=== PATIENT | female | born 1960 | race Caucasian/White ===

== ENCOUNTER 2016-05-25 15:23 | Inpatient (IN) | payer BC ==
[~2016-05-25] VITALS: Ht 165.1 cm; Wt 122.6 kg
--- NOTE | 2016-05-25 16:05 | RAD ---
Indication: Chest pain. Time of exam 1551 hours. No prior studies are available for comparison. There is right convexity thoracic scoliotic curvature. The lungs are clear. No infiltrate or failure is detected. No effusion or pneumothorax is seen. Impression: No acute features detected.
[2016-05-25 16:07] LABS: BASO % 1 % (0-3); EOS % 1 % (0-3); HEMATOCRIT 38.4 % (36.0-47.0); HEMOGLOBIN 12.8 g/dL (12.0-15.5); LYMPH # 1.8 x10^3/uL (1.0-4.8); LYMPH % 25 % (24-48); MEAN CORPUSCULAR HEMOGLOBIN 29 pg (25-35); MEAN CORPUSCULAR HGB CONC 33 g/dL (31-37); MEAN CORPUSCULAR VOLUME 87 fL (79-100); MONO % 7 % (0-9); NEUT % 67 % (31-73); PLATELET COUNT 237 x10^3/uL (140-400); RED BLOOD COUNT 4.41 x10^6/uL (3.50-5.40); WHITE BLOOD COUNT 7.2 x10^3/uL (4.0-11.0)
[2016-05-25 16:15] LABS: CALCIUM 8.7 mg/dL (8.5-10.1); CREATININE 0.8 mg/dL (0.6-1.0); GFR 74.5; POTASSIUM 3.9 mmol/L (3.5-5.1)
--- NOTE | 2016-05-25 16:18 | EKG ---
[facility] [address] [place] [address] Test Date: 2016-05-25 Test Time: 15:34:02 Pat Name: VISHAL MAYO Department: Room: Gender: F Ciaio Lumite Injector: : 1960 Requested By: MEJIA HINOJOSA Order Number: [id number] Reading MD: Stef Mcfarland Measurements Intervals [place] Rate: 60 P: 23 KS: 212 QRS: -6 QRSD: 88 T: 23 QT: 420 QTc: 424 Interpretive Statements SINUS RHYTHM Electronically Signed On 05-26-2016 13:17:05 [employer] P[employer] by Stef Mcfarland
[2016-05-25] MEDS ORDERED: hydrALAZINE 20 MG/ML VIAL. IVP ONE (16:30)
[2016-05-25] MEDS ORDERED: IOHEXOL 300 MG/ML 75 ML VIAL IV ONE (16:45)
--- NOTE | 2016-05-25 17:24 | RAD ---
PROCEDURE CT head without contrast. HISTORY Headache today TECHNIQUE Helical CT imaging of the brain is performed without IV contrast. PQRS: One or more the following individualized dose reduction techniques were utilized for the study: 1. Automated exposure control. 2. Adjustment of the mA and/or kV according to patient size. 3. Use of iterative reconstruction technique. COMPARISON None. FINDINGS There is no midline shift or mass effect. No extra-axial fluid collection or intraparenchymal hemorrhage. Russ-white matter differentiation is preserved. Ventricles and sulci are normal for patient age. The visualized paranasal sinuses and mastoid air cells are clear. The globes and orbits appear intact. No acute calvarial abnormality. IMPRESSION No acute intracranial abnormality. Electronically signed by: Becky Rodriguez MD (May 25, 2016 17:22:58)
--- NOTE | 2016-05-25 17:40 | PHYS DOC ---
Past Medical History Past Medical History: No Pertinent History Past Surgical History: Cholecystectomy, , Hysterectomy Alcohol Use: None Drug Use: None Adult General Chief Complaint Chief Complaint: NEURO SYMPTOMS/DEFICITS [facility] HPI This is a 55-year-old female is coming in with significant chest pain as well as some abnormal sensory disturbance in which she states she has an abnormal smelling sensation for the last several hours. She additionally notes that symptoms were present upon awakening earlier today around 9 AM. She does relate that she's been having ongoing chest pain on and off for the last few months. She does not state she has any history of health problems. She has been told that she has history of elevated blood pressure but is not currently on any blood pressure medications. She currently rates her chest pain at approximately a 6 out of 10. She also states she has some mild tingling in her bilateral upper extremities. Review of Systems Review of Systems Constitutional: Denies fever or chills [] Eyes: Denies change in visual acuity, redness, or eye pain [] HENT: Denies nasal congestion or sore throat [] Respiratory: Denies cough or shortness of breath [] Cardiovascular: No additional information not addressed in HPI [] GI: Denies abdominal pain, nausea, vomiting, bloody stools or diarrhea [] : Denies dysuria or hematuria [] Musculoskeletal: Denies back pain or joint pain [] Integument: Denies rash or skin lesions [] Neurologic: Denies headache, focal weakness or sensory changes [] Endocrine: Denies polyuria or polydipsia [] Current Medications Current Medications Current Medications Medications (Trade) Dose Ordered Sig/Black Start Time Stop Time Status Last Admin Dose Admin Acetaminophen (Tylenol) 650 mg PRN Q4HRS PRN 05/25/16 18:45 05/26/16 18:44 Hydralazine HCl (Apresoline) 10 mg CONT PRN PRN 05/25/16 19:30 UNV Iohexol (Omnipaque 300 Mg/ml) 75 ml 1X ONCE 05/25/16 16:45 05/25/16 16:49 DC 05/25/16 17:10 75 ML Ondansetron HCl (Zofran) 4 mg PRN Q8HRS PRN 05/25/16 18:45 05/26/16 18:44 Allergies Allergies Allergies Coded Allergies Type Severity Reaction Last Updated Verified No Known Drug Allergies 05/25/16 No Physical Exam Physical Exam Constitutional: Well developed, well nourished, no acute distress, non-toxic appearance. [] HENT: Normocephalic, atraumatic, bilateral external ears normal, oropharynx moist, no oral exudates, nose normal. [] Eyes: PERRLA, EOMI, conjunctiva normal, no discharge. [] Neck: Normal range of motion, no tenderness, supple, no stridor. [] Cardiovascular:Heart rate regular rhythm, no murmur [] Lungs & Thorax: Bilateral breath sounds clear to auscultation [] Abdomen: Bowel sounds normal, soft, no tenderness, no masses, no pulsatile masses. [] Skin: Warm, dry, no erythema, no rash. [] Back: No tenderness, no CVA tenderness. [] Extremities: No tenderness, no cyanosis, no clubbing, ROM intact, no edema. [] Neurologic: Alert and oriented X 3, normal motor function, normal sensory function, no focal deficits noted. [] Psychologic: Affect normal, judgement normal, mood normal. [] Current Patient Data Vital Signs Vital Signs Date Time Temp Pulse Resp B/P Pulse Ox O2 Delivery O2 Flow Rate FiO2 05/25/16 19:00 72 16 206/93 98 Room Air 05/25/16 15:42 98.9 98.9 Lab Values Laboratory Tests Test 05/25/16 16:00 White Blood Count 7.2x10^3/uL (4.0-11.0) Red Blood Count 4.41x10^6/uL (3.50-5.40) Hemoglobin 12.8g/dL (12.0-15.5) Hematocrit 38.4% (36.0-47.0) Mean Corpuscular Volume 87fL (79-100) Mean Corpuscular Hemoglobin 29pg (25-35) Mean Corpuscular Hemoglobin Concent 33g/dL (31-37) Red Cell Distribution Width 13.0% (11.5-14.5) Platelet Count 237x10^3/uL (140-400) Neutrophils (%) (Auto) 67% (31-73) Lymphocytes (%) (Auto) 25% (24-48) Monocytes (%) (Auto) 7% (0-9) Eosinophils (%) (Auto) 1% (0-3) Basophils (%) (Auto) 1% (0-3) Neutrophils # (Auto) 4.8x10^3uL (1.8-7.7) Lymphocytes # (Auto) 1.8x10^3/uL (1.0-4.8) Monocytes # (Auto) 0.5x10^3/uL (0.0-1.1) Eosinophils # (Auto) 0.1x10^3/uL (0.0-0.7) Basophils # (Auto) 0.0x10^3/uL (0.0-0.2) Sodium Level 140mmol/L (136-145) Potassium Level 3.9mmol/L (3.5-5.1) Chloride Level 104mmol/L (98-107) Carbon Dioxide Level 28mmol/L (21-32) Anion Gap 8 (6-14) Blood Urea Nitrogen 13mg/dL (7-20) Creatinine 0.8mg/dL (0.6-1.0) Estimated GFR (Cockcroft-Gault) 74.5 Glucose Level 154mg/dL (70-99) H Calcium Level 8.7mg/dL (8.5-10.1) Troponin I Quantitative < 0.017ng/mL (0.000-0.055) Laboratory Tests 05/25/16 16:00 Laboratory Tests 05/25/16 16:00 EKG EKG EKG is interpreted by mo shows sinus rhythm with rate of 60 bpm. There is a leftward axis. There are no acute ischemic changes on this EKG. Radiology/Procedures Radiology/Procedures Portable one view of the chest as interpreted by mo and the radiologist does not reveal an acute cardiopulmonary process. CTA of the chest demonstrated the following: Axial imaging through the chest was performed after the administration of intravenous contrast and utilizing the CT angiography protocol. Multiplanar, 3-D and MIP reformations were also performed. Evaluation of the pulmonary arterial system is without evidence of thromboembolism. No filling defects are identified. The thoracic aorta is unremarkable. No dissection is identified. No axillary, hilar or mediastinal lymphadenopathy is seen. There are calcified lymph nodes in the left hilum consistent with prior granulomatous exposure. No pericardial or pleural fluid is identified. Parenchymal evaluation demonstrate a calcified granuloma in the left lower lobe. No infiltrates are identified. There is a tiny subpleural nodule in the right upper lobe laterally, image 39. The upper abdomen is unremarkable. The bony structures are nonacute. CT of the head without contrast demonstrated the following: There is no midline shift or mass effect. No extra-axial fluid collection or intraparenchymal hemorrhage. Russ-white matter differentiation is preserved. Ventricles and sulci are normal for patient age. The visualized paranasal sinuses and mastoid air cells are clear. The globes and orbits appear intact. No acute calvarial abnormality. Course & Med Decision Making Course & Med Decision Making Pertinent Labs and Imaging studies reviewed. (See chart for details) This 55-year-old female who is having ongoing chest pain and an extremely elevated blood pressure of 230/130 received an IV dose of hydralazine that has improved her pressure to approximately 180/80. Her NIH exam is 0. Due to the fact that she's having neuro type symptoms and ongoing chest pain I will be obtaining a CT of her chest rule out any acute aortic or other abnormality. Her EKG and bloodwork including a set of cardiac enzymes did not reveal any acute abnormality. I also obtained a CT of her head and chest. CT of her head and CT of her chest were negative for any acute abnormality. Her bloodwork is also nonrevealing and the patient was given an IV dose of hydralazine which did improve her symptoms and her blood pressure but her blood pressure did start to increase again and so a PRN hydralazine was ordered. I discussed the case with Dr. Rajput who agreed to admit the patient with cardiology consult for her ongoing high blood pressure issues and chest pain. Upon my final assessment patient is denying any significant symptoms and is not deemed a TPA candidate. Dragon Disclaimer Dragon Disclaimer This electronic medical record was generated, in whole or in part, using a voice recognition dictation system. Departure Departure Impression: Primary Impression: Hypertensive urgency Additional Impressions: Chest pain Pulmonary nodule Disposition: ADMITTED INPATIENT Admitting Physician: Jeromy Rajput Condition: STABLE Referrals: NO PCP (PCP) Problem Qualifiers MEJIA HINOJOSA DO May 25, 2016 17:40
--- NOTE | 2016-05-25 18:03 | RAD ---
CT angio chest. Indication: HEADACHE, CHEST PRESSURE, TIGHTNESS TODAY. NO PREVIOUS.
IV OMNI 300 75 MLSReason: headache / Spl. Instructions: / History: TECHNIQUE Multiple contiguous axial images were obtained through the chest after intravenous administration of iodinated contrast. Sagittal and coronal MIP reformations were created. FINDINGS There is a somewhat lobulated 1.4 centimeter nodule in the medial basal segment of the right lower lobe. There is a 4.3 millimeter noncalcified pleural-based nodule in the lateral right lower lobe. There is also a 10 millimeter noncalcified nodule adjacent to the right hilum in the right upper lobe abutting the minor fissure. The left lung is clear. There is no filling defect within the pulmonary arteries to suggest presence of a pulmonary embolism. The heart size is normal. There is no pericardial effusion. The thoracic aorta is normal in caliber with no evidence for dissection. Mildly prominent subcentimeter mediastinal lymph nodes are seen. There is a enlarged 1.7 centimeter right hilar lymph node. Limited subdiaphragmatic evaluation is unremarkable. No destructive osseous lesions are identified. IMPRESSION Noncalcified dominant lobulated 1.4 centimeter nodule in the right lower lobe with additional nodules in the right lung as outlined above. The etiology of the nodules is not clear. While noncalcified granulomatous lesions are possible, primary pulmonary neoplasm with additional metastatic nodules is possible. Mildly enlarged right hilar lymph node, metastatic etiology not excluded. PQRS STATEMENT One or more of the following individualized dose reduction techniques were utilized for this study: 1.Automated exposure control 2.Adjustment of the mA and/or kV according to patient size 3.Use of iterative reconstruction technique Electronically signed by: Becky Rodriguez MD (May 25, 2016 18:01:23)
[2016-05-25] MEDS ORDERED: ONDANSETRON PF 4 MG/2 ML VIAL. IV PRN (18:45)
[2016-05-25] MEDS ORDERED: hydrALAZINE 20 MG/ML VIAL. IVP PRN (19:30)
[2016-05-25 20:10] VITALS: BP 198/92
[2016-05-25] MEDS: ACETAMINOPHEN 325 MG TABLET. PO PRN (20:29)
[2016-05-25 20:40] VITALS: BP 200/83
[2016-05-25 21:50] VITALS: BP 182/84
[2016-05-25] MEDS: AMLODIPINE BESYLATE 10 MG TABLET PO SCH (21:54)
[2016-05-25] MEDS ORDERED: FUROSEMIDE 40 MG/4 ML VIAL IVP ONE (22:00)
[2016-05-25 23:15] VITALS: BP 175/75
[2016-05-26 03:00] VITALS: BP 176/78
[2016-05-26] MEDS: ACETAMINOPHEN 325 MG TABLET. PO PRN ×3 (03:09→14:30)
[2016-05-26 06:47] LABS: BASO # 0.1 x10^3/uL (0.0-0.2); BASO % 1 % (0-3); EOS % 1 % (0-3); HEMATOCRIT 38.6 % (36.0-47.0); HEMOGLOBIN 12.9 g/dL (12.0-15.5); LYMPH # 1.6 x10^3/uL (1.0-4.8); LYMPH % 22 % (24-48); MEAN CORPUSCULAR HEMOGLOBIN 29 pg (25-35); MEAN CORPUSCULAR HGB CONC 34 g/dL (31-37); MEAN CORPUSCULAR VOLUME 88 fL (79-100); MONO % 6 % (0-9); NEUT % 71 % (31-73); PLATELET COUNT 233 x10^3/uL (140-400); RED BLOOD COUNT 4.41 x10^6/uL (3.50-5.40); RED CELL DISTRIBUTION WIDTH 12.9 % (11.5-14.5); WHITE BLOOD COUNT 7.6 x10^3/uL (4.0-11.0)
[2016-05-26 06:58] LABS: CALCIUM 8.8 mg/dL (8.5-10.1); CREATININE 0.8 mg/dL (0.6-1.0); GFR 74.5; POTASSIUM 4.1 mmol/L (3.5-5.1)
[2016-05-26 07:58] VITALS: BP 150/66
[2016-05-26] MEDS: AMLODIPINE BESYLATE 10 MG TABLET PO SCH (08:24)
--- NOTE | 2016-05-26 09:14 | PDOC2 ---
CHANDNI JOHNSON EGG CANDLER 05/26/16 0914: CARDIAC CONSULT DATE OF CONSULT Date of Consult DATE: 05/26/16 TIME: 09:05 REASON FOR CONSULT Reason for Consult: Chest Pain REFERRING PHYSICIAN Referring Physician: Dr. Paul SOURCE Source: Chart review, Patient HISTORY OF PRESENT ILLNESS HISTORY OF PRESENT ILLNESS This is a 55 yo female, with a history of HTN and HLP, who presented with complaints of chest pain. Patient reports pain has been occurring intermittently over the last 3-4 month. Generally has 1 episode, lasting 1-2 minutes, every 3-4 days. Yesterday, patient had 5-6 episodes so she came in for further evaluation. Pain is located in her central chest. Describes as tightness. Non-radiating. Denies any associated dizziness, diaphoresis, palpitations, SOA, or wheezing. No recent LE edema, orthopnea, or fevers/ illness. Reports slight wheezing over the last couple of months. Patient additionally reports that chest tightness is associated with "disorientation" and that she feels like "I am in another world" for a brief period. No exacerbating or relieving factors. Symptoms resolve without intervention within 1-2 minutes. No prior h/o cardiac disease or cardiac workup. Does not routinely follow with PCP or take any medications. Both mother and father with h/o CAD with father passing away from [place] at age 48. PAST MEDICAL HISTORY Cardiovascular: HTN, Hyperlipidemia Pulmonary: No pertinent hx CENTRAL NERVOUS SYSTEM: Other (no pertinent hx) GI: GERD Heme/Onc: No pertinent hx Hepatobiliary: No pertinent hx Psych: No pertinent hx Musculoskeletal: Osteoarthritis Rheumatologic: No pertinent hx Infectious disease: No pertinent hx ENT: No pertinent hx Renal/: No pertinent hx Endocrine: No pertinent hx Dermatology: No pertinent hx PAST SURGICAL HISTORY Past Surgical History: Cholecystectomy, Hysterectomy FAMILY HISTORY Family History: Coronary Artery Disease (mother/father), Hypertension, Stroke SOCIAL HISTORY Smoke: No ALCOHOL: none Drugs: None Lives: with Family CURRENT MEDICATIONS CURRENT MEDICATIONS Current Medications Medications (Trade) Dose Ordered Sig/Black Route PRN Reason Start Time Stop Time Status Last Admin Dose Admin Hydralazine HCl (Apresoline) 10 mg 1X ONCE IVP 05/25/16 16:30 05/25/16 16:31 DC 05/25/16 16:31 Iohexol (Omnipaque 300 Mg/ml) 75 ml 1X ONCE IV 05/25/16 16:45 05/25/16 16:49 DC 05/25/16 17:10 Ondansetron HCl (Zofran) 4 mg PRN Q8HRS PRN IV NAUSEA/VOMITING 05/25/16 18:45 05/26/16 18:44 05/25/16 22:18 Acetaminophen (Tylenol) 650 mg PRN Q4HRS PRN PO FEVER 05/25/16 18:45 05/26/16 18:44 05/26/16 08:24 Hydralazine HCl (Apresoline) 10 mg PRN Q4HRS PRN IVP HYPERTENSION, SEE COMMENTS 05/25/16 19:30 05/25/16 19:32 Amlodipine Besylate (Norvasc) 10 mg DAILY PO 05/25/16 22:00 05/26/16 08:24 Furosemide (Lasix) 40 mg 1X ONCE IVP 05/25/16 22:00 05/25/16 22:01 DC 05/25/16 21:54 ALLERGIES ALLERGIES: Coded Allergies: No Known Drug Allergies (Unverified , 05/25/16) ROS Review of System 14 point ROS conducted with pertinent positives noted above in HPI. PHYSICAL EXAM General: Alert, Oriented X3, Cooperative, No acute distress HEENT: Atraumatic, PERRLA, Mucous membr. moist/pink Lungs: Normal air movement Heart: Regular rate, Normal S1, Normal S2 Abdomen: Soft, No tenderness Extremities: No cyanosis, No edema, Normal pulses, Other Skin: No breakdown, No significant lesion Neuro: Normal speech, Sensation intact Psych/Mental Status: Mental status NL, Mood NL MUSCULOSKELETAL: Full range of motion without pain VITALS VITALS Vital Signs Date Time Temp Pulse Resp B/P Pulse Ox O2 Delivery O2 Flow Rate FiO2 05/26/16 08:24 64 150/66 05/26/16 07:58 97.6 18 97 Room Air 97.6 LABS Lab: Laboratory Tests Test 05/25/16 16:00 05/26/16 01:13 05/26/16 06:38 White Blood Count 7.2x10^3/uL (4.0-11.0) 7.6x10^3/uL (4.0-11.0) Red Blood Count 4.41x10^6/uL (3.50-5.40) 4.41x10^6/uL (3.50-5.40) Hemoglobin 12.8g/dL (12.0-15.5) 12.9g/dL (12.0-15.5) Hematocrit 38.4% (36.0-47.0) 38.6% (36.0-47.0) Mean Corpuscular Volume 87fL (79-100) 88fL (79-100) Mean Corpuscular Hemoglobin 29pg (25-35) 29pg (25-35) Mean Corpuscular Hemoglobin Concent 33g/dL (31-37) 34g/dL (31-37) Red Cell Distribution Width 13.0% (11.5-14.5) 12.9% (11.5-14.5) Platelet Count 237x10^3/uL (140-400) 233x10^3/uL (140-400) Neutrophils (%) (Auto) 67% (31-73) 71% (31-73) Lymphocytes (%) (Auto) 25% (24-48) 22% (24-48) Monocytes (%) (Auto) 7% (0-9) 6% (0-9) Eosinophils (%) (Auto) 1% (0-3) 1% (0-3) Basophils (%) (Auto) 1% (0-3) 1% (0-3) Neutrophils # (Auto) 4.8x10^3uL (1.8-7.7) 5.3x10^3uL (1.8-7.7) Lymphocytes # (Auto) 1.8x10^3/uL (1.0-4.8) 1.6x10^3/uL (1.0-4.8) Monocytes # (Auto) 0.5x10^3/uL (0.0-1.1) 0.5x10^3/uL (0.0-1.1) Eosinophils # (Auto) 0.1x10^3/uL (0.0-0.7) 0.1x10^3/uL (0.0-0.7) Basophils # (Auto) 0.0x10^3/uL (0.0-0.2) 0.1x10^3/uL (0.0-0.2) Sodium Level 140mmol/L (136-145) 142mmol/L (136-145) Potassium Level 3.9mmol/L (3.5-5.1) 4.1mmol/L (3.5-5.1) Chloride Level 104mmol/L (98-107) 104mmol/L (98-107) Carbon Dioxide Level 28mmol/L (21-32) 29mmol/L (21-32) Anion Gap 8 (6-14) 9 (6-14) Blood Urea Nitrogen 13mg/dL (7-20) 12mg/dL (7-20) Creatinine 0.8mg/dL (0.6-1.0) 0.8mg/dL (0.6-1.0) Estimated GFR (Cockcroft-Gault) 74.5 74.5 Glucose Level 154mg/dL (70-99) 136mg/dL (70-99) Calcium Level 8.7mg/dL (8.5-10.1) 8.8mg/dL (8.5-10.1) Troponin I Quantitative < 0.017ng/mL (0.000-0.055) < 0.017ng/mL (0.000-0.055) < 0.017ng/mL (0.000-0.055) ASSESSMENT/PLAN ASSESSMENT/PLAN 1. Chest pain, atypical 2. Malignant hypertension 3. GERD 4. DM? 5. pulmonary nodule Recommendations troponin series normal- AMI ruled out chest pain atypical, but given strong family history of premature CAD and significant risk factors, will proceed with MPI to r/o ischemia ASA, check lipids, A1C. Statin therapy if indicated Norvasc initiated and BP better controlled, but would recommend AQUILES, especially if A1C elevated. Further workup of right lung nodules per pulmonary Problems: VALENTINE CAMARENA MD 05/26/16 1522: CARDIAC CONSULT ALLERGIES ALLERGIES: Coded Allergies: No Known Drug Allergies (Unverified , 05/25/16) ASSESSMENT/PLAN ASSESSMENT/PLAN Patient seen and examined. Agree with above nurse practitioner note. 55-year-old woman presenting with atypical chest pain symptoms. She has had malignant hypertension upon arrival. Normal cardiac and pulmonary examination. Medications and laboratory studies are reviewed. Nuclear stress test is within normal limits. No further cardio vascular testing necessary. Continue risk factor modification and blood pressure control. We will follow up on an outpatient basis as needed. Problems: CHANDNI JOHNSON APRN May 26, 2016 09:14 VALENTINE CAMARENA MD May 26, 2016 15:22
[2016-05-26 09:42] LABS: CHOLESTEROL/HDL RATIO 4.3
[2016-05-26] MEDS ORDERED: REGADENOSON 0.4 MG/5 ML DISP.SYRIN. IV ONE (11:15)
[2016-05-26] MEDS ORDERED: LISINOPRIL 5 MG TABLET. PO SCH (12:30)
--- NOTE | 2016-05-26 13:15 | RAD ---
APPROVED REPORT Test Type: Pharmacological Stress Nurse/Tech: sharon lee Test Indications: CP, HTN Cardiac History: HTN SEE EHR Medications: SEE EHR Medical History: ASTHMA SEE EHR Resting ECG: SR Resting Heart Rate: 68 bpm Resting Blood Pressure: 163/73mmHg Pretest Chest Pain: No chest pain Nurse/Tech Notes LUNG SOUNDS CLEAR, S1S2 WNL. Consent: The procedure was explained to the patient in lay terms. Informed consent was witnessed. Dima eout was entered into [facility]. History and Stress Test performed by RT Kumar (R) (N) Pharm. Details Pharmacologic stress testing was performed using 0.4mg per 5ml of regadenoson given intravenously ove r 7-10 seconds. Stress Symptoms FACIAL FLUSHING, HEADACHE. POST EXERCISE Max HR: 118 bpm Max Blood Pressure: 179/87mmHg Chest Pain: No. Arrhythmia: No. ST Change: No. INTERPRETATION Stress EKG Conclusion: No evidence of stress induced EKG changes. Imaging Protocol IMAGE PROTOCOL: Stress Tc-99m/rest Tc-99m 2 days Rest: Stress: Viability: Radiopharm.Tc99m Sestamibi [id number] Duration 12min. Img Date 05/26/2016 Inj-Img [id number]. Stress Admin Site: IV - Left AntecubitalAdministrator: RT Kumar (R)(N) STRESS DATA End Diast. Vol.106.0mlAv. Heart Rate73.0bpm End Syst. Vol.26.0mlCO Index BSA0.0L/min Myocardial Jrlf659.0gEject. Jdojrfke60.0% Stress Rates Pk. Fill Rate3.76EDV/secLVtime Pk. Fill 222.74msec Pk. Empty Rate4.03ESV/secLVtime Pk. Sfpmx474.85msec 05/05 Pk. Fill1.26EDV/sec Stress Scores Regional WT0.00Summed WT1.00 Regional WM0.00Summed WM0.00 LV Perfusion Stress only images show normal perfusion and normal wall motion. LV Perf. Quant 17 Seg. SSS2.00 Stress Defect Extent (% LAD)1.30Rest Defect Extent (% LAD)Rev. Defect Extent (% LAD)0.00 Stress Defect Extent (% LCX) 12.50Rest Defect Extent (% LCX)Rev. Defect Extent (% LCX)0.00 Stress Defect Extent (% RCA)3.30Rest Defect Extent (% RCA)Rev. Defect Extent (% RCA)0.00 Stress Defect Extent (% JOSE)6.70Rest Defect Extent (% JOSE)Rev. Defect Extent (% JOSE)0.00 Other Information Quality:Average Risk Assessment: Low Risk Conclusion 1. No EKG evidence of stress induced ischemia. 2. Normal myocardial perfusion at stress. Resting images not performed. 3. Normal EF at > 70% 4. Low risk study
--- NOTE | 2016-05-26 13:27 | PDOC ---
Provider Note Provider Note dictated lung nodules, probably inflamm. f/u with me on jun [address] chest EMMANUEL BEDOLLA MD May 26, 2016 13:27
--- NOTE | 2016-05-26 13:53 | CONS ---
DATE OF CONSULTATION: PULMONARY CONSULTATION ATTENDING PHYSICIAN: Dr. Rajput. REASON FOR CONSULTATION: Abnormal CT chest with lung nodule. HISTORY OF PRESENT ILLNESS: The patient is a pleasant 55-year-old female who has no significant history of tobacco use. She came into the hospital complaining of vague chest pains centrally. She said she also had some upper respiratory tract symptoms. She was having chest pain for the last 2-3 months actually. She also has been coughing for about a week or so. No fever. She is a nonsmoker. No weight loss. She did have some mild leg edema. She was seen in the Emergency Room. A CT chest with pulmonary embolism protocol was performed and was reviewed by me. There was no evidence of pulmonary embolism. There was a noncalcified, slightly lobulated 1.4-cm nodule in the right lower lobe with additional nodules seen in the right lung. One of them was a 10-mm noncalcified nodule close to the right hilum and another one about 4.3 mm laterally in the right lower lobe. I have been asked to see her for further evaluation. She was very hypertensive when she arrived. Cardiology is seeing her. She also had a stress test done. PAST MEDICAL HISTORY: No significant pulmonary history. PAST SURGICAL HISTORY: Cholecystectomy, and hysterectomy. ALLERGIES AND MEDICATIONS: Reviewed as listed in the [facility]AD. SOCIAL HISTORY: Nonsmoker. FAMILY HISTORY: Noncontributory to lungs. PHYSICAL EXAMINATION: VITAL SIGNS: Blood pressure is much improved now, it is 150/66. On admission, it was up to 212/102. Afebrile, pulse ox 98% on room air. NECK: Supple. LUNGS: Clear. CARDIOVASCULAR: With regular rate and rhythm. ABDOMEN: Soft, obese. EXTREMITIES: With no pitting edema. LABORATORY DATA: Reviewed. CBC with white cell count of 7.6, hemoglobin 12.9. IMPRESSION: 1. Abnormal CT chest with lung nodules in the right lung, largest of them 1.4 cm, lobulated nodule posteromedially in the right lower lobe, another one 10 mm adjacent to the right hilum and another one 4.3 mm noncalcified laterally in the right lower lobe. This is a patient who has never smoked cigarettes and has no constitutional symptoms of malignancy. She has no other known cancers. I suspect that this is probably inflammatory in etiology and I would recommend round of antibiotics with a followup CT chest in 4-6 weeks. 2. Hypertensive urgency, currently being seen by Cardiology. Blood pressure is better controlled. Stress test is done. 3. No significant history of tobacco use. RECOMMENDATIONS: 1. Discussed with the patient and the daughter. I would follow up another CT chest in 4-6 weeks. I have given her a followup for 06/30/2016 at our office. 2. We will give her oral Levaquin. 3. If the CT chest shows persistent nodule, then she would need PET scan and if it is hypermetabolic, then she would need a biopsy. 4. Follow the results of stress test. 5. The patient could be discharged from pulmonary standpoint. 6. She has not had a mammogram for many years, would recommend to have on as OP. EMMANUEL BEDOLLA MD DR: YOAV/ann JOB#: [id number] / [id number] KYLE
--- NOTE | 2016-05-26 14:39 | HP ---
ADMIT DATE: 05/26/2016 CHIEF COMPLAINT: Chest pain and abnormal sensory sensation. HISTORY OF PRESENT ILLNESS: The patient is a pleasant, relatively healthy 55-year-old female, who presented with chest pain. She also has some numbness in her hands. While she was in the ER, she was noted have pressures into the 200 systolically. She had accelerated hypertension. I have discussed the case with the ER physician. We have now admitted her. It should also be noted that she has a subtly abnormal CT of the chest. We have consulted Pulmonary as well. PAST MEDICAL HISTORY: Cholecystectomy, , hysterectomy. ALLERGIES: None. FAMILY HISTORY: Hypertension. 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 She does not drink, smoke, or take drugs. MEDICATIONS: Reviewed, please refer to the MRAD. REVIEW OF SYSTEMS: GENERAL: No history of weight change, weakness or fevers. SKIN: No bruising, hair changes or rashes. EYES: No blurred, double or loss of vision. NOSE AND THROAT: No history of nosebleeds, hoarseness or sore throat. HEART: No history of palpitations, chest pain or shortness of breath on exertion. LUNGS: Denies cough, hemoptysis, wheezing or shortness of breath. GASTROINTESTINAL: Denies changes in appetite, nausea, vomiting, diarrhea or constipation. GENITOURINARY: No history of frequency, urgency, hesitancy or nocturia. NEUROLOGIC: Denies history of numbness, tingling, tremor or weakness. PSYCHIATRIC: No history of panic, anxiety or depression. ENDOCRINE: No history of heat or cold intolerance, polyuria or polydipsia. EXTREMITIES: Denies muscle weakness, joint pain, pain on walking or stiffness. PHYSICAL EXAMINATION: VITAL SIGNS: Temperature afebrile, pulse 97, respirations 18, blood pressure has ranged from 249/114, now down to 150/66. GENERAL: She is alert, cooperative, pleasant. HEART: Normal S1, S2. LUNGS: Clear to auscultation. ABDOMEN: Soft, positive bowel sounds. EXTREMITIES: No edema. SKIN: No rashes. PSYCHIATRIC: She is stable. VASCULAR: Good capillary refill. ENDOCRINE: No thyromegaly. LYMPHATICS: No cervical nodes. HEMATOPOIETIC: No bruising. LABORATORY DATA: White count 7, hemoglobin 12, platelets 237. Electrolytes normal other than a glucose of 136. Troponin is 0. CT of the chest shows some noncalcified lesions, the greatest size of one of them is about 1.4 cm. ASSESSMENT AND PLAN: Accelerated hypertension with incidental finding of abnormal imaging of the lungs. The patient has been admitted. We are placing her on appropriate antihypertensives. We have consulted Pulmonary Medicine regarding the abnormal CT, although I hope this is just granulomatous disease and not anything more serious. We will recheck her labs. PT, OT. Resume home medicines. KARLENE ZAMBRANO DO DR: TORSTEN/ann JOB#: [id number] / [id number]
[2016-05-26 14:46] VITALS: BP 167/72
[2016-05-26] MEDS ORDERED: AMLO10TA4 PO (17:00)
[2016-05-26] MEDS ORDERED: LISI-338 PO (17:07)
== END 2016-05-26 17:15 | disposition home or self-care (01) | DRG 304 ==
LOC: ER 15:23 → 2 NORTH 18:42
PROVIDERS: ADMIT Internal Medicine; ATTEND Internal Medicine
DX: I16.0 Hypertensive urgency (principal); G93.41 Metabolic encephalopathy; E78.5 Hyperlipidemia, unspecified; I10 Essential (primary) hypertension; K21.9 Gastro-esophageal reflux disease without esophagitis; R07.89 Other chest pain; M19.90 Unspecified osteoarthritis, unspecified site; R91.1 Solitary pulmonary nodule; Z82.3 Family history of stroke; Z82.49 Family history of ischemic heart disease and other diseases of the circulatory system; Z90.49 Acquired absence of other specified parts of digestive tract; Z90.710 Acquired absence of both cervix and uterus
CPT/HCPCS: 36415; 70450; 71010; 71275; 78452; 80048; 80061; 83036; 84484; 85027; 93005; 93017; 96374; A9500; J0360; J1940; J2405; J2785; Q9967; 99285-25

== ENCOUNTER → 2016-06-26 | Outpatient (CLI) | payer BC ==
[~2016-06-26] MED LIST: AMLO10TA4 PO; LISI-338 PO
--- NOTE | 2016-06-26 09:07 | RAD ---
CT of the chest without contrast, 06/26/2016: History: Follow-up pulmonary nodules Noncontrast scans were obtained as requested. Comparison is made to an exam from 05/25/2016. There is a lobulated noncalcified soft tissue nodule in the periphery of the right lower lobe medially abutting the pleura. It is best visualized on image 231 of series #3. It measures 16 mm in greatest AP diameter and has shown no definite change. A 4 mm noncalcified round subpleural nodule is present laterally in the right lower lobe on image 212 series #3. It is unchanged. There is a 10 mm irregular noncalcified nodule along the lateral aspect of the right hilum as best seen on image 157 of series #3. The coronal images suggests that this lies in the right middle lobe. This nodule also appears to be unchanged. No new pulmonary mass or infiltrate is seen. There is no evidence of pleural fluid. A mildly enlarged right hilar lymph node seen on the previous study is less clearly defined on today's exam due to lack of vascular contrast enhancement. Several small mediastinal lymph nodes are present without evidence of pathologic enlargement. The thoracic aorta is of normal caliber.. There is minimal calcific plaquing of the aorta. Minimal coronary artery calcification is present. There is a mild thoracic scoliosis with mild scattered degenerative changes. IMPRESSION: Unchanged right pulmonary nodules as described above. Slowly growing malignancy remains a possibility. PET/CT imaging may be useful for further evaluation. PQRS Compliance Statement: One or more of the following individualized dose reduction techniques were utilized for this examination: 1. Automated exposure control 2. Adjustment of the mA and/or kV according to patient size 3. Use of iterative reconstruction technique
== END | disposition home or self-care (01) ==
LOC: CT 07:32
PROVIDERS: ATTEND Internal Medicine Critical Care Medicine
DX: R91.1 Solitary pulmonary nodule (principal)
CPT/HCPCS: 71250

== ENCOUNTER → 2016-07-23 | Outpatient (CLI) | payer BC ==
--- NOTE | 2016-07-23 11:09 | RAD ---
Indication lung nodule. PET/CT was performed from the skull through the proximal thigh. CT was performed primarily for localization and attenuation purposes as opposed to primary diagnostic purposes. No prior PET/CT imaging is available. The blood sugar during the examination was 121. 12.5 mCi of FDG was administered. Note is made of a CT examination of the chest 06/26/2016. That examination referenced a 16 mm nodule in the right lower lobe, a 4 mm nodule peripherally in the right lower lobe (this nodule would not be large enough to evaluate accurately with PET) and a right hilar nodule measuring 10 mm greatest dimension. On CT the visualized brain appears unremarkable. There are a few lymph nodes seen in the neck. Nodule in the right lower lobe is reproduced as well as the tiny 4 mm nodule in the right lower lobe. The hilar nodule is also seen. Imaging through the abdomen and pelvis is unremarkable The larger nodule in the right lower lobe does not demonstrate significant FDG activity. Similarly the hilar nodule is not definitely FDG avid. Continued follow-up of these pulmonary nodules, with CT, is advised. No definite abnormality is seen in the chest. The FDG is physiologically distributed in the visualized abdomen and pelvis, neck and visualized head IMPRESSION: No FDG avid pulmonary nodule is seen. Continued surveillance with CT advised.
== END | disposition home or self-care (01) ==
LOC: PETSC 08:05
PROVIDERS: ATTEND Internal Medicine Critical Care Medicine
DX: R91.1 Solitary pulmonary nodule (principal)
CPT/HCPCS: 78815; A9552

== ENCOUNTER → 2016-08-18 | Outpatient (CLI) | payer BC ==
--- NOTE | 2016-08-19 19:44 | SLEEP ---
DATE OF STUDY: 08/18/2016 REFERRING PHYSICIAN: Artur Chirinos M.D. The patient is 55 years old who weighs 275 pounds with a BMI of 46. The patient's Olin score was 7. A split night study was performed at [place] [facility]. During the night study, the patient spent 414 minutes in bed and slept for 332 minutes with a sleep efficiency of 80%. Sleep latency was 10 minutes with a REM latency of 106 minutes. Overall, sleep architecture showed normal stage I and stage II sleep, normal slow wave and normal REM sleep. During the initial diagnostic portion of the study, the patient slept for 131 minutes. During this time, there were 2 obstructive apneas, 1 mixed and no central apneas. There were 24 hypopneas. The patient's apnea hypopnea index was 12 per hour with a supine index of 22 per hour and a REM index of 84 per hour. Review of nocturnal oximetry study revealed a mean oxygen saturation of 93% with the lowest of 76%. 11% of time oxygen saturation remained between 80% and 89%. EKG monitoring revealed normal sinus rhythm, average heart rate was 80 beats per minute. No sustained arrhythmias were observed. PLMS were not seen. The patient met the criteria for CPAP initiation. It was started at 5 cm water and titrated up to 9 cm of water. At the final pressure, the patient had 67 minutes of sleep. This patient had supine as well as long REM sleep was observed. AHI was reduced to 3 per hour and oxygen saturation remained above 88%. The patient used small size nasal pillows. IMPRESSION: 1. Mild sleep apnea-hypopnea syndrome with moderate increase during supine sleep and further worsening during REM sleep. Total AHI 12 per hour, supine AHI 22 per hour and REM AHI of 84 per hour. 2. Mild nocturnal hypoxia secondary to obstructive sleep apnea, but resolved with CPAP. 3. No clinically significant periodic limb movements of sleep. RECOMMENDATIONS: 1. CPAP at 9 cm water completely eliminated the patient's sleep apnea, should be used on a nightly basis. 2. Follow up in 4-6 weeks to assess compliance with CPAP and to document clinical improvement. 3. Weight loss is strongly advised. 4. Avoid OUTSIDE CUTTER depressants. 5. Caution regarding driving until symptoms of sleep apnea resolve with the use of CPAP. ARTUR CHIRINOS MD DR: YOAV/ann JOB#: [id number] / [id number] KYLE
== END | disposition home or self-care (01) ==
LOC: SLPLAB 18:30
PROVIDERS: ATTEND Internal Medicine Critical Care Medicine
DX: G47.33 Obstructive sleep apnea (adult) (pediatric) (principal)
CPT/HCPCS: 95810

== ENCOUNTER → 2016-10-02 | Outpatient (CLI) | payer BC ==
--- NOTE | 2016-10-02 14:15 | RAD ---
CT chest without IV contrast History: Lung nodules. Comparison: CT chest 06/26/2016. Technique: Helical CT of the chest was performed without intravenous contrast. Axial, sagittal, and coronal reconstructions were obtained. One or more of the following individualized dose reduction techniques were utilized for the study: Automated exposure control Adjustment of mA and/or kV according to patient's size Use of iterative reconstruction technique. Findings: Visualized thyroid is symmetric. Trachea demonstrates a mild amount of endoluminal secretions. No mediastinal lymphadenopathy is seen. No pericardial thickening or cardiac chamber enlargement is identified. Multilobulated soft tissue pulmonary nodule involving the right lower lobe measuring 16 mm in maximum dimension is unchanged. Right lower lobe pulmonary nodule measuring 4 mm (series 3 image 199) is unchanged. Right middle lobe irregular soft tissue pulmonary nodule measuring 10 mm (series 3 image 149) is without appreciable change. There are several small soft tissue pulmonary nodules measuring up to 3 mm involving the anterior aspect of superior segment of the right lower lobe; nodules are unchanged from previous study study. These can be seen on images 133 through 158 of series 3. Reversed S-shaped scoliosis of the thoracic spine is again seen. Impression: Multiple pulmonary nodules are unchanged including the largest lobulated right lower lobe pulmonary nodule. No new nodule is appreciated. Recommend continued surveillance.
== END | disposition home or self-care (01) ==
LOC: CT 10:26
PROVIDERS: ATTEND Internal Medicine Critical Care Medicine
DX: R91.1 Solitary pulmonary nodule (principal)
CPT/HCPCS: 71250

== ENCOUNTER → 2017-06-25 | Outpatient (CLI) | payer BC | END | disposition home or self-care (01) | LOC: CT 08:37 | DX: R91.8 Other nonspecific abnormal finding of lung field (principal); Z90.49 Acquired absence of other specified parts of digestive tract | CPT/HCPCS: 71250 ==

== ENCOUNTER → 2018-03-04 | Outpatient (CLI) | payer BC ==
--- NOTE | 2018-03-04 17:06 | RAD ---
Examination: THYROID ULTRASOUND History: THYROID NODULE Comparison/Correlation: None Findings: Thyroid ultrasound exam was performed. Right thyroid lobe measures 6.1 cm x 1.18 x 3 cm. Left thyroid lobe measures 6.2 cm x 1.16 x 2.2 cm. Right thyroid lobe inferior pole solid mass measuring 2.3 cm x 1.14 x CM 1.7 cm is present with flow about its periphery on color Doppler imaging. Additional lesion at the inferior pole of the right thyroid lobe medially measuring 1.5 cm x 1.3 cm x 1.7 cm is present and heterogeneous. Flow is evident involving involving this nodule. These nodules are well demarcated. Left thyroid lobe has a solid nodule inferiorly measuring 0.16 x 0.3 cm x 0.6 cm. Additional more inferiorly located solid lesion measuring 1.1 cm x 0.8 cm x 0.9 cm is present. Thyroid isthmus measures up to 0.4 cm anteroposteriorly. Impression: TI-RADS category 2-not suspicious. Consider interval follow-up in 12 months by ultrasound to assess stability. Electronically signed by: Harpal Olivarez MD (03/04/2018 5:03 PM) [facility]
== END | disposition home or self-care (01) ==
LOC: US 15:44
PROVIDERS: ATTEND Nurse Practitioner Family
DX: E04.1 Nontoxic single thyroid nodule (principal)
CPT/HCPCS: 76536

== ENCOUNTER 2018-03-16 11:15 | Observation (INO) | payer BC ==
[~2018-03-16] VITALS: Ht 165.1 cm; Wt 120.2 kg
[2018-03-16] MEDS ORDERED: ASPIRIN 325 MG TABLET PO ONE (11:45)
[2018-03-16 11:52] LABS: BASO # 0.1 x10^3/uL (0.0-0.2); BASO % 1 % (0-3); EOS # 0.1 x10^3/uL (0.0-0.7); EOS % 1 % (0-3); HEMATOCRIT 39.4 % (36.0-47.0); HEMOGLOBIN 13.3 g/dL (12.0-15.5); LYMPH # 2.1 x10^3/uL (1.0-4.8); LYMPH % 32 % (24-48); MEAN CORPUSCULAR HEMOGLOBIN 30 pg (25-35); MEAN CORPUSCULAR HGB CONC 34 g/dL (31-37); MEAN CORPUSCULAR VOLUME 90 fL (79-100); MONO # 0.5 x10^3/uL (0.0-1.1); MONO % 8 % (0-9); NEUT # 3.8 x10^3uL (1.8-7.7); NEUT % 57 % (31-73); PLATELET COUNT 236 x10^3/uL (140-400); RED CELL DISTRIBUTION WIDTH 13.2 % (11.5-14.5); WHITE BLOOD COUNT 6.6 x10^3/uL (4.0-11.0)
--- NOTE | 2018-03-16 11:56 | EKG ---
[facility] [address] [place] [address] Test Date: 2018-03-16 Test Time: 11:22:44 Pat Name: VISHAL MAYO Department: Room: Gender: F Bait Maker: : [id number] Requested By: KELLY CINTRON Order Number: [id number] Reading MD: Stef Mcfarland MD Measurements Intervals Ione Rate: 83 P: 28 ID: [id number] QRS: -7 QRSD: 86 T: 56 QT: 358 QTc: 421 Interpretive Statements SINUS RHYTHM PVC Electronically Signed On 03-17-2018 9:31:23 [employer] by Stef Mcfarland MD
[2018-03-16 11:57] LABS: CALCIUM 9.9 mg/dL (8.5-10.1); CREATININE 0.9 mg/dL (0.6-1.0); GFR 64.5; POTASSIUM 4.1 mmol/L (3.5-5.1)
[2018-03-16 12:02] LABS: ALBUMIN 3.9 g/dL (3.4-5.0); MAGNESIUM 1.8 mg/dL (1.8-2.4); TOTAL BILIRUBIN 0.3 mg/dL (0.2-1.0); TOTAL PROTEIN 7.9 g/dL (6.4-8.2)
--- NOTE | 2018-03-16 12:11 | RAD ---
Examination: PORTABLE CHEST 1V History: CHEST PAIN, HYPERTENTION Comparison/Correlation: 06/22/2017 CT chest without contrast Findings: Portable upright frontal view chest was obtained. Heart size and pulmonary vasculature are normal. No infiltrate or pleural effusion. Dextroconvex scoliosis of the thoracic spine is present. Impression: No infiltrate. Electronically signed by: Harpal Olivarez MD (03/16/2018 12:07 PM) [facility]
--- NOTE | 2018-03-16 14:16 | RAD ---
Examination: ABDOMEN LTD History: ELEVATED LFT'S/LOOK AT LIVER ONLY PER DR. Comparison/Correlation: None Findings: Limited right upper quadrant ultrasound exam was performed. Fatty infiltration of the liver is evident. Common bile that measures 1 cm diameter. Portal venous flow is normal. Cholecystectomy noted. Common bile that measures up to 0.98 cm diameter. No intrahepatic biliary dilatation. No right hydronephrosis. Impression: Fatty infiltration of the liver. Common bile duct diameter of 0.98 cm. This may be related to postcholecystectomy status. Correlate with serum bilirubin and hepatic enzymes. Electronically signed by: Harpal Olivarez MD (03/16/2018 2:12 PM) [facility]
--- NOTE | 2018-03-16 14:24 | PDOC1 ---
History and Physical Date of Admission Date of Admission DATE: 03/16/18 TIME: 14:23 Identification/Chief Complaint Chief Complaint seen in er This morning, experienced central chest pressure with dizziness and LANE. Checked blood pressure and it was >200 so she decided to come to the ED f Denies any associated SOA, palpitations, diaphoresis, . Reports chronic fatigued. Reports increased stress at work Past Medical History Cardiovascular: HTN, Hyperlipidemia Pulmonary: No pertinent hx CENTRAL NERVOUS SYSTEM: Other GI: GERD Heme/Onc: No pertinent hx Hepatobiliary: No pertinent hx Psych: No pertinent hx Musculoskeletal: Osteoarthritis Rheumatologic: No pertinent hx Infectious disease: No pertinent hx Renal/: No pertinent hx Endocrine: No pertinent hx Past Surgical History Past Surgical History: Cholecystectomy, Hysterectomy Family History Family History: Coronary Artery Disease, Hypertension, Stroke Social History Smoke: No ALCOHOL: none Drugs: None Current Medications Current Medications Current Medications Aspirin (Power Aspirin) 325 mg 1X ONCE PO Last administered on 03/16/18at 11: 45; Start 03/16/18 at 11:45; Stop 03/16/18 at 11:46; Status DC Active Scripts Active Reported Lisinopril 5 Mg Tablet 1 Tab PO DAILY Norvasc (Amlodipine Besylate) 10 Mg Tablet 10 Mg PO DAILY Allergies Allergies: Coded Allergies: No Known Drug Allergies (Unverified , 05/25/16) ROS Review of System 14 pt ros otherwise neg General: YES: Fatigue PSYCHOLOGICAL ROS: YES: Anxiety Eyes: No Blurry vision, No Decreased vision, No Double vision, No Dry eyes, No Excessive tearing, No Eye Pain, No Itchy Eyes, No Loss of vision, No Photophobia , No Scotomata, No Uses contacts, No Uses glasses, No Other ALLERGY AND IMMUNOLOGY: No: Hives, Insect Bite Sensitivity, Itchy/Watery Eyes, Nasal Congestion, Post Nasal Drip, Seasonal Allergies, Other Hematological and Lymphatic: No: Bleeding Problems, Blood Clots, Blood Transfusions, Brusing, Night Sweats, Pallor, Swollen Lymph Nodes, Other ENDOCRINE: No: Breast Changes, Galactorrhea, Hair Pattern Changes, Hot Flashes , Malaise/lethargy, Mood Swings, Palpitations, Polydipsia/polyuria, Skin Changes , Temperature Intolerance, Unexpected Weight Changes, Other Cardiovascular: yes Chest Pain Musculoskeletal: No Gait Disturbance, No Joint Pain, No Joint Stiffness, No Joint Swelling, No Muscle Pain, No Muscular Weakness, No Pain In:, No Swelling In:, No Other Skin: No Dry Skin, No Eczema, No Hair Changes, No Lumps, No Mole Changes, No Mottling, No Nail Changes, No Pruritus, No Rash, No Skin Lesion Changes, No Other, No Acne Physical Exam General: Alert, Oriented X3, Cooperative, No acute distress HEENT: Atraumatic, PERRLA, EOMI, Mucous membr. moist/pink Lungs: Clear to auscultation, Normal air movement Heart: S1S2, RRR, no thrills, no murmurs Breasts: Not examined Abdomen: Normal bowel sounds, Soft Rectal Exam: not examined PELVIC: Examination not indicated Extremities: No clubbing, No cyanosis Neuro: Normal speech, Strength at 5/5 X4 ext, Cranial nerves 3-12 NL Psych/Mental Status: Mental status NL, Mood NL Vitals Vitals Vital Signs Date Time Temp Pulse Resp B/P (MAP) Pulse Ox O2 Delivery O2 Flow Rate FiO2 03/16/18 13:00 62 133/76 (95) 100 Room Air 03/16/18 11:27 97.6 16 97.6 Labs Labs Laboratory Tests Test 03/16/18 11:25 White Blood Count 6.6 x10^3/uL (4.0-11.0) Red Blood Count 4.40 x10^6/uL (3.50-5.40) Hemoglobin 13.3 g/dL (12.0-15.5) Hematocrit 39.4 % (36.0-47.0) Mean Corpuscular Volume 90 fL (79-100) Mean Corpuscular Hemoglobin 30 pg (25-35) Mean Corpuscular Hemoglobin Concent 34 g/dL (31-37) Red Cell Distribution Width 13.2 % (11.5-14.5) Platelet Count 236 x10^3/uL (140-400) Neutrophils (%) (Auto) 57 % (31-73) Lymphocytes (%) (Auto) 32 % (24-48) Monocytes (%) (Auto) 8 % (0-9) Eosinophils (%) (Auto) 1 % (0-3) Basophils (%) (Auto) 1 % (0-3) Neutrophils # (Auto) 3.8 x10^3uL (1.8-7.7) Lymphocytes # (Auto) 2.1 x10^3/uL (1.0-4.8) Monocytes # (Auto) 0.5 x10^3/uL (0.0-1.1) Eosinophils # (Auto) 0.1 x10^3/uL (0.0-0.7) Basophils # (Auto) 0.1 x10^3/uL (0.0-0.2) Sodium Level 141 mmol/L (136-145) Potassium Level 4.1 mmol/L (3.5-5.1) Chloride Level 102 mmol/L (98-107) Carbon Dioxide Level 27 mmol/L (21-32) Anion Gap 12 (6-14) Blood Urea Nitrogen 15 mg/dL (7-20) Creatinine 0.9 mg/dL (0.6-1.0) Estimated GFR (Cockcroft-Gault) 64.5 BUN/Creatinine Ratio 17 (6-20) Glucose Level 134 mg/dL (70-99) Calcium Level 9.9 mg/dL (8.5-10.1) Magnesium Level 1.8 mg/dL (1.8-2.4) Total Bilirubin 0.3 mg/dL (0.2-1.0) Aspartate Amino Transf (AST/SGOT) 48 U/L (15-37) Alanine Aminotransferase (ALT/SGPT) 98 U/L (14-59) Alkaline Phosphatase 84 U/L (46-116) Troponin I Quantitative < 0.017 ng/mL (0.000-0.055) VY-Rok-Q-Type Natriuretic Peptide 30 pg/mL (0-124) Total Protein 7.9 g/dL (6.4-8.2) Albumin 3.9 g/dL (3.4-5.0) Albumin/Globulin Ratio 1.0 (1.0-1.7) Laboratory Tests Test 03/16/18 11:25 White Blood Count 6.6 x10^3/uL (4.0-11.0) Red Blood Count 4.40 x10^6/uL (3.50-5.40) Hemoglobin 13.3 g/dL (12.0-15.5) Hematocrit 39.4 % (36.0-47.0) Mean Corpuscular Volume 90 fL (79-100) Mean Corpuscular Hemoglobin 30 pg (25-35) Mean Corpuscular Hemoglobin Concent 34 g/dL (31-37) Red Cell Distribution Width 13.2 % (11.5-14.5) Platelet Count 236 x10^3/uL (140-400) Neutrophils (%) (Auto) 57 % (31-73) Lymphocytes (%) (Auto) 32 % (24-48) Monocytes (%) (Auto) 8 % (0-9) Eosinophils (%) (Auto) 1 % (0-3) Basophils (%) (Auto) 1 % (0-3) Neutrophils # (Auto) 3.8 x10^3uL (1.8-7.7) Lymphocytes # (Auto) 2.1 x10^3/uL (1.0-4.8) Monocytes # (Auto) 0.5 x10^3/uL (0.0-1.1) Eosinophils # (Auto) 0.1 x10^3/uL (0.0-0.7) Basophils # (Auto) 0.1 x10^3/uL (0.0-0.2) Sodium Level 141 mmol/L (136-145) Potassium Level 4.1 mmol/L (3.5-5.1) Chloride Level 102 mmol/L (98-107) Carbon Dioxide Level 27 mmol/L (21-32) Anion Gap 12 (6-14) Blood Urea Nitrogen 15 mg/dL (7-20) Creatinine 0.9 mg/dL (0.6-1.0) Estimated GFR (Cockcroft-Gault) 64.5 BUN/Creatinine Ratio 17 (6-20) Glucose Level 134 mg/dL (70-99) Calcium Level 9.9 mg/dL (8.5-10.1) Magnesium Level 1.8 mg/dL (1.8-2.4) Total Bilirubin 0.3 mg/dL (0.2-1.0) Aspartate Amino Transf (AST/SGOT) 48 U/L (15-37) Alanine Aminotransferase (ALT/SGPT) 98 U/L (14-59) Alkaline Phosphatase 84 U/L (46-116) Troponin I Quantitative < 0.017 ng/mL (0.000-0.055) FR-Gmk-A-Type Natriuretic Peptide 30 pg/mL (0-124) Total Protein 7.9 g/dL (6.4-8.2) Albumin 3.9 g/dL (3.4-5.0) Albumin/Globulin Ratio 1.0 (1.0-1.7) Images Images Examination: ABDOMEN LTD History: ELEVATED LFT'S/LOOK AT LIVER ONLY PER DR. Comparison/Correlation: None Findings: Limited right upper quadrant ultrasound exam was performed. Fatty infiltration of the liver is evident. Common bile that measures 1 cm diameter. Portal venous flow is normal. Cholecystectomy noted. Common bile that measures up to 0.98 cm diameter. No intrahepatic biliary dilatation. No right hydronephrosis. Impression: Fatty infiltration of the liver. Common bile duct diameter of 0.98 cm. This may be related to postcholecystectomy status. Correlate with serum bilirubin and hepatic enzymes. Electronically signed by: Harpal Olivarez MD (03/16/2018 2:12 PM) [facility] VTE Prophylaxis Ordered VTE Prophylaxis Devices: Yes VTE Pharmacological Prophylaxi: Yes Assessment/Plan Assessment/Plan impression 1. chest pain 2. obesity 3. stress and anxiety 4. Fatty infiltration of the liver. plan tele admit serial troponin i echo [place] meds sq lovenox dvt prophylaxis consider stress testing flp YULIANA BARRETT MD Mar 16, 2018 14:24
[2018-03-16 14:42] LABS: BILIRUBIN,URINE NEGATIVE (NEG); CLARITY,URINE CLEAR; COLOR,URINE YELLOW; NITRITE,URINE NEGATIVE (NEG); PH,URINE 5.5; PROTEIN,URINE NEGATIVE (NEG-TRACE); UROBILINOGEN,URINE 0.2 mg/dL (0.2 mg/dL)
[2018-03-16] MEDS ORDERED: ACETAMINOPHEN 325 MG TABLET. PO PRN (14:45)
[2018-03-16] MEDS ORDERED: NITROGLYCERIN SUBLINGUAL 0.4 MG BOTTLE OF 25. SL PRN (14:45)
[2018-03-16] MEDS ORDERED: ONDANSETRON PF 4 MG/2 ML VIAL. IV PRN (14:45)
[2018-03-16] MEDS ORDERED: MORPHINE SULFATE 4 MG/ML VIAL. IV PRN (14:45)
[2018-03-16 14:49] LABS: BARBITURATES NEG (NEG); BENZODIAZEPINES NEG (NEG); CANNABINOIDS NEG (NEG); COCAINE NEG (NEG); METHADONE NEG (NEG); OPIATES NEG (NEG); PHENCYCLIDINE NEG (NEG)
[2018-03-16 14:51] LABS: AMPHETAMINE/METHAMPHETAMINE NEG (NEG)
--- NOTE | 2018-03-16 14:57 | PDOC2 ---
CHANDNI JOHNSON CHRISTINA 03/16/18 1457: CARDIAC CONSULT DATE OF CONSULT Date of Consult DATE: 03/16/18 TIME: 14:50 REASON FOR CONSULT Reason for Consult: Chest pain REFERRING PHYSICIAN Referring Physician: Joanna Feliciano APRN SOURCE Source: Chart review, Patient HISTORY OF PRESENT ILLNESS HISTORY OF PRESENT ILLNESS This is a 57 yo female who presented with complaints of chest pain and hypertension. Has noticed blood pressure has been elevated for the last couple of weeks. PCP recently increased Norvasc and lisinopril form 5mg to 10mg each. BP continued to be elevated. Over the last week, SBP has been consistently > 160. Over the last couple of days SBP > 180 and occasionally in the 200 range. Last night, felt dizzy. Had LANE. SBP in the 190's. This morning, experienced central chest pressure in addition to the dizziness and LANE. Checked blood pressure and it was >200 so she decided to come to the ED for further evaluation and treatment. Denies any associated SOA, palpitations, diaphoresis, nausea/vomiting or PND. Reports chronic fatigued. Reports increased stress at work, otherwise no changes at home. PAST MEDICAL HISTORY Past Medical History Cardiovascular: HTN, Hyperlipidemia Pulmonary: Pulmonary nodules CENTRAL NERVOUS SYSTEM: Other (no pertinent hx) GI: GERD Heme/Onc: No pertinent hx Hepatobiliary: No pertinent hx Psych: No pertinent hx Musculoskeletal: Osteoarthritis Rheumatologic: No pertinent hx Infectious disease: No pertinent hx ENT: No pertinent hx Renal/: No pertinent hx Endocrine: No pertinent hx Dermatology: No pertinent hx PAST SURGICAL HISTORY Past Surgical History: Cholecystectomy, Hysterectomy FAMILY HISTORY Family History Coronary Artery Disease (father), Hypertension, Stroke (mother) SOCIAL HISTORY Social History Smoke: No ALCOHOL: none Drugs: None Lives: with Family CURRENT MEDICATIONS CURRENT MEDICATIONS Current Medications Medications (Trade) Dose Ordered Sig/Black Route PRN Reason Start Time Stop Time Status Last Admin Dose Admin Aspirin (Power Aspirin) 325 mg 1X ONCE PO 03/16/18 11:45 03/16/18 11:46 DC 03/16/18 11:45 ALLERGIES ALLERGIES: Coded Allergies: No Known Drug Allergies (Unverified , 05/25/16) ROS Review of System 14 point ROS conducted with pertinent positives noted above in HPI. PHYSICAL EXAM General: Alert, Oriented X3, Cooperative, No acute distress HEENT: Atraumatic, Mucous membr. moist/pink Lungs: Clear to auscultation, Normal air movement Heart: Regular rate, Normal S1, Normal S2 Abdomen: Soft, No tenderness Extremities: No edema, Normal pulses Skin: No breakdown, No significant lesion Neuro: Normal speech, Sensation intact Psych/Mental Status: Mental status NL, Mood NL MUSCULOSKELETAL: No swelling VITALS VITALS Vital Signs Date Time Temp Pulse Resp B/P (MAP) Pulse Ox O2 Delivery O2 Flow Rate FiO2 03/16/18 13:00 62 133/76 (95) 100 Room Air 03/16/18 11:27 97.6 16 97.6 LABS Lab: Laboratory Tests Test 03/16/18 11:25 White Blood Count 6.6 x10^3/uL (4.0-11.0) Red Blood Count 4.40 x10^6/uL (3.50-5.40) Hemoglobin 13.3 g/dL (12.0-15.5) Hematocrit 39.4 % (36.0-47.0) Mean Corpuscular Volume 90 fL (79-100) Mean Corpuscular Hemoglobin 30 pg (25-35) Mean Corpuscular Hemoglobin Concent 34 g/dL (31-37) Red Cell Distribution Width 13.2 % (11.5-14.5) Platelet Count 236 x10^3/uL (140-400) Neutrophils (%) (Auto) 57 % (31-73) Lymphocytes (%) (Auto) 32 % (24-48) Monocytes (%) (Auto) 8 % (0-9) Eosinophils (%) (Auto) 1 % (0-3) Basophils (%) (Auto) 1 % (0-3) Neutrophils # (Auto) 3.8 x10^3uL (1.8-7.7) Lymphocytes # (Auto) 2.1 x10^3/uL (1.0-4.8) Monocytes # (Auto) 0.5 x10^3/uL (0.0-1.1) Eosinophils # (Auto) 0.1 x10^3/uL (0.0-0.7) Basophils # (Auto) 0.1 x10^3/uL (0.0-0.2) Sodium Level 141 mmol/L (136-145) Potassium Level 4.1 mmol/L (3.5-5.1) Chloride Level 102 mmol/L (98-107) Carbon Dioxide Level 27 mmol/L (21-32) Anion Gap 12 (6-14) Blood Urea Nitrogen 15 mg/dL (7-20) Creatinine 0.9 mg/dL (0.6-1.0) Estimated GFR (Cockcroft-Gault) 64.5 BUN/Creatinine Ratio 17 (6-20) Glucose Level 134 mg/dL (70-99) Calcium Level 9.9 mg/dL (8.5-10.1) Magnesium Level 1.8 mg/dL (1.8-2.4) Total Bilirubin 0.3 mg/dL (0.2-1.0) Aspartate Amino Transf (AST/SGOT) 48 U/L (15-37) Alanine Aminotransferase (ALT/SGPT) 98 U/L (14-59) Alkaline Phosphatase 84 U/L (46-116) Troponin I Quantitative < 0.017 ng/mL (0.000-0.055) FT-Jye-L-Type Natriuretic Peptide 30 pg/mL (0-124) Total Protein 7.9 g/dL (6.4-8.2) Albumin 3.9 g/dL (3.4-5.0) Albumin/Globulin Ratio 1.0 (1.0-1.7) STRESS TEST STRESS TEST Conclusion 1. No EKG evidence of stress induced ischemia. 2. Normal myocardial perfusion at stress. Resting images not performed. 3. Normal EF at > 70% 4. Low risk study DATE: 05/26/16 1314 ASSESSMENT/PLAN ASSESSMENT/PLAN 1. Chest pain, atypical and most probably related to #2 2. Accelerated hypertension 3. Hyperlipidemia 4. Mildly elevated LFTs Recommendations Trend troponin Resume amlodipine. Increase lisinopril to 40mg Maintain BP control. Check echo to assess LV function/presence of WMA. If CP persists, despite adequate BP control, consider further ischemia working on an outpatient basis. Discussed/encouraged exercise/lifestyle modification VALENTINE CAMARENA MD 03/16/18 4044: CARDIAC CONSULT ASSESSMENT/PLAN ASSESSMENT/PLAN Pt. seen and examined. Agree with above MANAGER LIGHTING note. ALEX,EMILY CHRISTINA Mar 16, 2018 14:57 VALENTINE CAMARENA MD Mar 16, 2018 17:44
[2018-03-16 15:05] VITALS: BP 143/77
[2018-03-16 15:06] LABS: BACTERIA,URINE MODERATE /HPF (0-FEW); RBC,URINE OCC /HPF (0-2); SQUAMOUS EPITHELIAL CELL,UR FEW /LPF; WBC,URINE OCC /HPF (0-4)
[2018-03-16] MEDS ORDERED: METF500T16 PO (16:00)
[2018-03-16] MEDS ORDERED: LABETALOL 20 MG/4 ML DISP.SYRIN. IVP PRN (16:30)
--- NOTE | 2018-03-16 16:50 | PHYS DOC ---
Past Medical History Past Medical History: Diabetes-Type II, Hypertension Past Surgical History: Cholecystectomy, , Hysterectomy Alcohol Use: None Drug Use: None Adult General Chief Complaint Chief Complaint: CHEST PAIN HPI HPI Patient is a 57 year old female with a history of hypertension, diabetes type 2 , who presents today with multiple complaints. Patient states this morning she noted her blood pressures were running high. She states she took her lisinopril and amlodipine. Patient states she also has chest heaviness and a slight headache that began this morning. Patient denies this being the worst headache in her life. Denies any pain relieving or making her chest heaviness worse. She states her PCP has been changing her blood pressure medications because her blood pressures have been running high. Review of Systems Review of Systems Constitutional: Denies fever or chills [] Eyes: Denies change in visual acuity, redness, or eye pain [] HENT: Denies nasal congestion or sore throat [] Respiratory: Denies cough or shortness of breath [] Cardiovascular: Pulses chest heaviness. Pupils high blood pressure. GI: Denies abdominal pain, nausea, vomiting, bloody stools or diarrhea [] : Denies dysuria or hematuria [] Musculoskeletal: Denies back pain or joint pain [] Integument: Denies rash or skin lesions [] Neurologic: Reports headache, denies focal weakness or sensory changes [] All other systems were reviewed and found to be within normal limits, except as documented in this note. Current Medications Current Medications Current Medications Medications (Trade) Dose Ordered Sig/[facility] Start Time Stop Time Status Last Admin Dose Admin Aspirin (Power Aspirin) 325 mg 1X ONCE 03/16/18 11:45 03/16/18 11:46 DC 03/16/18 11:45 325 MG Allergies Allergies Allergies Coded Allergies Type Severity Reaction Last Updated Verified No Known Drug Allergies 05/25/16 No Physical Exam Physical Exam Constitutional: Well developed, well nourished, no acute distress, non-toxic appearance. [] HENT: Normocephalic, atraumatic, bilateral external ears normal, oropharynx moist, no oral exudates, nose normal. [] Eyes: PERRLA, EOMI, conjunctiva normal, no discharge. [] Neck: Normal range of motion, no tenderness, supple, no stridor. [] Cardiovascular:Heart rate regular rhythm, no murmur [] Lungs & Thorax: Bilateral breath sounds clear to auscultation [] Abdomen: Bowel sounds normal, soft, no tenderness, no masses, no pulsatile masses. [] Skin: Warm, dry, no erythema, no rash. [] Back: No tenderness, no CVA tenderness. [] Extremities: No tenderness, no cyanosis, no clubbing, ROM intact, no edema. [] Neurologic: Alert and oriented X 3, normal motor function, normal sensory function, no focal deficits noted. Cranial nerves II through XII intact Psychologic: Affect normal, judgement normal, mood normal. [] Current Patient Data Vital Signs Vital Signs Date Time Temp Pulse Resp B/P (MAP) Pulse Ox O2 Delivery O2 Flow Rate FiO2 03/16/18 13:50 62 143/76 (98) 100 Room Air 03/16/18 11:27 97.6 16 97.6 Lab Values Laboratory Tests Test 03/16/18 11:25 White Blood Count 6.6 x10^3/uL (4.0-11.0) Red Blood Count 4.40 x10^6/uL (3.50-5.40) Hemoglobin 13.3 g/dL (12.0-15.5) Hematocrit 39.4 % (36.0-47.0) Mean Corpuscular Volume 90 fL (79-100) Mean Corpuscular Hemoglobin 30 pg (25-35) Mean Corpuscular Hemoglobin Concent 34 g/dL (31-37) Red Cell Distribution Width 13.2 % (11.5-14.5) Platelet Count 236 x10^3/uL (140-400) Neutrophils (%) (Auto) 57 % (31-73) Lymphocytes (%) (Auto) 32 % (24-48) Monocytes (%) (Auto) 8 % (0-9) Eosinophils (%) (Auto) 1 % (0-3) Basophils (%) (Auto) 1 % (0-3) Neutrophils # (Auto) 3.8 x10^3uL (1.8-7.7) Lymphocytes # (Auto) 2.1 x10^3/uL (1.0-4.8) Monocytes # (Auto) 0.5 x10^3/uL (0.0-1.1) Eosinophils # (Auto) 0.1 x10^3/uL (0.0-0.7) Basophils # (Auto) 0.1 x10^3/uL (0.0-0.2) Sodium Level 141 mmol/L (136-145) Potassium Level 4.1 mmol/L (3.5-5.1) Chloride Level 102 mmol/L (98-107) Carbon Dioxide Level 27 mmol/L (21-32) Anion Gap 12 (6-14) Blood Urea Nitrogen 15 mg/dL (7-20) Creatinine 0.9 mg/dL (0.6-1.0) Estimated GFR (Cockcroft-Gault) 64.5 BUN/Creatinine Ratio 17 (6-20) Glucose Level 134 mg/dL (70-99) H Calcium Level 9.9 mg/dL (8.5-10.1) Magnesium Level 1.8 mg/dL (1.8-2.4) Total Bilirubin 0.3 mg/dL (0.2-1.0) Aspartate Amino Transferase (AST) 48 U/L (15-37) H Alanine Aminotransferase (ALT) 98 U/L (14-59) H Alkaline Phosphatase 84 U/L (46-116) Troponin I Quantitative < 0.017 ng/mL (0.000-0.055) OX-Oum-J-Type Natriuretic Peptide 30 pg/mL (0-124) Total Protein 7.9 g/dL (6.4-8.2) Albumin 3.9 g/dL (3.4-5.0) Albumin/Globulin Ratio 1.0 (1.0-1.7) Laboratory Tests 03/16/18 11:25 Laboratory Tests 03/16/18 11:25 EKG EKG 11:[address] Ba sinus rhythm heart rate 83 no STEMI Radiology/Procedures Radiology/Procedures []PROCEDURE: PORTABLE CHEST 1V Examination: PORTABLE CHEST 1V History: CHEST PAIN, HYPERTENTION Comparison/Correlation: 06/22/2017 CT chest without contrast Findings: Portable upright frontal view chest was obtained. Heart size and pulmonary vasculature are normal. No infiltrate or pleural effusion. Dextroconvex scoliosis of the thoracic spine is present. Impression: No infiltrate. Electronically signed by: Harpal Archer MD (03/16/2018 12:07 PM) [facility] DICTATED and SIGNED BY: HARPAL ARCHER MD DATE: 03/16/18 4717 Course & Med Decision Making Course & Med Decision Making Pertinent Labs and Imaging studies reviewed. (See chart for details) This is a 57-year-old female patient with history of hypertension, high cholesterol, presenting today complaining of high blood pressure, chest heaviness and a headache. Blood pressure and arrival to the ED is 176/85 with a heart rate of 83. Patient took her blood pressure medicines this morning. Patient's cardiac workup is negative. Her AST is elevated at 42 ALT at 95- abdominal ultrasound was ordered. Heart score 2 14:14 consulted with Loida TAVAREZ for cardiology who will follow-up with patient 14:[address] Love who accepted patient for admission. Patient admitted for CHEST pain rule out Dragon Disclaimer Dragon Disclaimer This electronic medical record was generated, in whole or in part, using a voice recognition dictation system. Departure Departure Impression: Primary Impression: Chest pain Additional Impressions: Hypertension Transaminitis Headache Disposition: 09 ADMITTED INPATIENT Condition: STABLE Referrals: ALEJANDRINA ROBLERO (PCP) Problem Qualifiers Primary Impression: Chest pain Chest pain type: unspecified Qualified Codes: R07.9 - Chest pain, unspecified Additional Impressions: Hypertension Hypertension type: unspecified Qualified Codes: I10 - Essential (primary) hypertension Headache Headache type: unspecified Headache chronicity pattern: unspecified pattern Intractability: not intractable Qualified Codes: R51 - Headache SDIBALKELLY Castillo OPERATIONS AND MAINTENANCE MANAGER Mar 16, 2018 16:50
[2018-03-16] MEDS: metFORMIN 500 MG TABLET PO SCH (17:57)
[2018-03-16 19:00] VITALS: BP 145/79
[2018-03-16] MEDS: ENOXAPARIN 40 MG/0.4 ML SYRINGE. SQ SCH (21:09)
[2018-03-16 23:00] VITALS: BP 127/71
[2018-03-17 03:00] VITALS: BP 152/77
[2018-03-17 05:02] LABS: BASO % 0 % (0-3); EOS # 0.1 x10^3/uL (0.0-0.7); EOS % 2 % (0-3); HEMOGLOBIN 12.5 g/dL (12.0-15.5); LYMPH # 2.5 x10^3/uL (1.0-4.8); LYMPH % 39 % (24-48); MEAN CORPUSCULAR HEMOGLOBIN 30 pg (25-35); MEAN CORPUSCULAR HGB CONC 34 g/dL (31-37); MEAN CORPUSCULAR VOLUME 89 fL (79-100); MONO # 0.5 x10^3/uL (0.0-1.1); MONO % 8 % (0-9); NEUT # 3.1 x10^3uL (1.8-7.7); NEUT % 50 % (31-73); PLATELET COUNT 200 x10^3/uL (140-400); RED BLOOD COUNT 4.14 x10^6/uL (3.50-5.40); RED CELL DISTRIBUTION WIDTH 13.2 % (11.5-14.5); WHITE BLOOD COUNT 6.3 x10^3/uL (4.0-11.0)
[2018-03-17 05:31] LABS: CREATININE 0.9 mg/dL (0.6-1.0); GFR 64.5; POTASSIUM 4.3 mmol/L (3.5-5.1)
[2018-03-17 05:35] LABS: CHOLESTEROL/HDL RATIO 5.4
[2018-03-17 07:00] VITALS: BP 150/88
[2018-03-17] MEDS ORDERED: PANTOPRAZOLE 40 MG TABLET.DR. PO SCH (07:30)
--- NOTE | 2018-03-17 07:53 | PDOC ---
PROGRESS NOTES Chief Complaint Chief Complaint HTN urgency with elevated LFTs chest pain obesity stress and anxiety Fatty infiltration of the liver. History of Present Illness History of Present Illness 57 yo female who presented with complaints of chest pain and hypertension. Has noticed blood pressure has been elevated for the last couple of weeks. PCP recently increased Norvasc and lisinopril form 5mg to 10mg each. BP continued to be elevated. Over the last week, SBP has been consistently > 160. Over the last couple of days SBP > 180 and occasionally in the 200 range. Last night, felt dizzy. Had LANE. SBP in the 190's. This morning, experienced central chest pressure in addition to the dizziness and LANE. Checked blood pressure and it was >200 so she decided to come to the ED for further evaluation and treatment. Denies any associated SOA, palpitations, diaphoresis, nausea/vomiting or PND. Reports chronic fatigued. Reports increased stress at work, otherwise no changes at home. Found with elevated BP as above and elevated transaminases. Underwent EKG - NSR Echo showing: The left ventricular systolic function is normal.The Ejection Fraction is 55-60%. There is normal LV segmental wall motion. Transmitral Doppler flow pattern is Grade I-abnormal relaxation pattern. Doppler and Color-flow revealed trace to mild mitral regurgitation. There is no evidence of significant pericardial effusion. STRESS TEST - 05/26/16 Conclusion 1. No EKG evidence of stress induced ischemia. 2. Normal myocardial perfusion at stress. Resting images not performed. 3. Normal EF at > 70% 4. Low risk study A/P: Chest pain, atypical and most probably related to accelerated HTN - EKG and echo reviewed ok Accelerated hypertension - back on home amlodipine and lisinopril Hyperlipidemia Mildly elevated LFTs - needs outpatient repeat studies, could be secondary to her elevated BP as end-organ dysfunction Ok to go home Vitals Vitals Vital Signs Date Time Temp Pulse Resp B/P (MAP) Pulse Ox O2 Delivery O2 Flow Rate FiO2 03/17/18 03:00 97.4 75 18 152/77 (102) 98 Room Air 97.4 Physical Exam General: Alert, Oriented X3, Cooperative, No acute distress Heart: Regular rate, Normal S1, Normal S2 Abdomen: Normal bowel sounds, Soft Extremities: No clubbing, No cyanosis Skin: No breakdown, No significant lesion Labs LABS Laboratory Tests Test 03/16/18 11:25 03/16/18 14:36 03/16/18 17:01 03/16/18 23:25 White Blood Count 6.6 x10^3/uL (4.0-11.0) Red Blood Count 4.40 x10^6/uL (3.50-5.40) Hemoglobin 13.3 g/dL (12.0-15.5) Hematocrit 39.4 % (36.0-47.0) Mean Corpuscular Volume 90 fL (79-100) Mean Corpuscular Hemoglobin 30 pg (25-35) Mean Corpuscular Hemoglobin Concent 34 g/dL (31-37) Red Cell Distribution Width 13.2 % (11.5-14.5) Platelet Count 236 x10^3/uL (140-400) Neutrophils (%) (Auto) 57 % (31-73) Lymphocytes (%) (Auto) 32 % (24-48) Monocytes (%) (Auto) 8 % (0-9) Eosinophils (%) (Auto) 1 % (0-3) Basophils (%) (Auto) 1 % (0-3) Neutrophils # (Auto) 3.8 x10^3uL (1.8-7.7) Lymphocytes # (Auto) 2.1 x10^3/uL (1.0-4.8) Monocytes # (Auto) 0.5 x10^3/uL (0.0-1.1) Eosinophils # (Auto) 0.1 x10^3/uL (0.0-0.7) Basophils # (Auto) 0.1 x10^3/uL (0.0-0.2) Sodium Level 141 mmol/L (136-145) Potassium Level 4.1 mmol/L (3.5-5.1) Chloride Level 102 mmol/L (98-107) Carbon Dioxide Level 27 mmol/L (21-32) Anion Gap 12 (6-14) Blood Urea Nitrogen 15 mg/dL (7-20) Creatinine 0.9 mg/dL (0.6-1.0) Estimated GFR (Cockcroft-Gault) 64.5 BUN/Creatinine Ratio 17 (6-20) Glucose Level 134 mg/dL (70-99) Calcium Level 9.9 mg/dL (8.5-10.1) Magnesium Level 1.8 mg/dL (1.8-2.4) Total Bilirubin 0.3 mg/dL (0.2-1.0) Aspartate Amino Transf (AST/SGOT) 48 U/L (15-37) Alanine Aminotransferase (ALT/SGPT) 98 U/L (14-59) Alkaline Phosphatase 84 U/L (46-116) Troponin I Quantitative < 0.017 ng/mL (0.000-0.055) < 0.017 ng/mL (0.000-0.055) < 0.017 ng/mL (0.000-0.055) FZ-Bhl-V-Type Natriuretic Peptide 30 pg/mL (0-124) Total Protein 7.9 g/dL (6.4-8.2) Albumin 3.9 g/dL (3.4-5.0) Albumin/Globulin Ratio 1.0 (1.0-1.7) Urine Collection Type Unknown Urine Color Yellow Urine Clarity Clear Urine pH 5.5 Urine Specific [place] 1.010 Urine Protein Negative mg/dL (NEG-TRACE) Urine Glucose (UA) Negative mg/dL (NEG) Urine Ketones (Stick) Negative mg/dL (NEG) Urine Blood Negative (NEG) Urine Nitrite Negative (NEG) Urine Bilirubin Negative (NEG) Urine Urobilinogen Dipstick 0.2 mg/dL (0.2 mg/dL) Urine Leukocyte Esterase Negative (NEG) Urine RBC Occ /HPF (0-2) Urine WBC Occ /HPF (0-4) Urine Squamous Epithelial Cells Few /LPF Urine Bacteria Moderate /HPF (0-FEW) Urine Opiates Screen Neg (NEG) Urine Methadone Screen Neg (NEG) Urine Barbiturates Neg (NEG) Urine Phencyclidine Screen Neg (NEG) Urine Amphetamine/Methamphetamine Neg (NEG) Urine Benzodiazepines Screen Neg (NEG) Urine Cocaine Screen Neg (NEG) Urine Cannabinoids Screen Neg (NEG) Urine Ethyl Alcohol Neg (NEG) Test 03/17/18 04:30 White Blood Count 6.3 x10^3/uL (4.0-11.0) Red Blood Count 4.14 x10^6/uL (3.50-5.40) Hemoglobin 12.5 g/dL (12.0-15.5) Hematocrit 37.0 % (36.0-47.0) Mean Corpuscular Volume 89 fL (79-100) Mean Corpuscular Hemoglobin 30 pg (25-35) Mean Corpuscular Hemoglobin Concent 34 g/dL (31-37) Red Cell Distribution Width 13.2 % (11.5-14.5) Platelet Count 200 x10^3/uL (140-400) Neutrophils (%) (Auto) 50 % (31-73) Lymphocytes (%) (Auto) 39 % (24-48) Monocytes (%) (Auto) 8 % (0-9) Eosinophils (%) (Auto) 2 % (0-3) Basophils (%) (Auto) 0 % (0-3) Neutrophils # (Auto) 3.1 x10^3uL (1.8-7.7) Lymphocytes # (Auto) 2.5 x10^3/uL (1.0-4.8) Monocytes # (Auto) 0.5 x10^3/uL (0.0-1.1) Eosinophils # (Auto) 0.1 x10^3/uL (0.0-0.7) Basophils # (Auto) 0.0 x10^3/uL (0.0-0.2) Sodium Level 142 mmol/L (136-145) Potassium Level 4.3 mmol/L (3.5-5.1) Chloride Level 105 mmol/L (98-107) Carbon Dioxide Level 28 mmol/L (21-32) Anion Gap 9 (6-14) Blood Urea Nitrogen 15 mg/dL (7-20) Creatinine 0.9 mg/dL (0.6-1.0) Estimated GFR (Cockcroft-Gault) 64.5 Glucose Level 112 mg/dL (70-99) Calcium Level 9.0 mg/dL (8.5-10.1) Triglycerides Level 123 mg/dL (0-150) Cholesterol Level 183 mg/dL (0-200) LDL Cholesterol, Calculated 124 mg/dL (0-100) VLDL Cholesterol, Calculated 25 mg/dL (0-40) Non-HDL Cholesterol Calculated 149 mg/dL (0-129) HDL Cholesterol 34 mg/dL (40-60) Cholesterol/HDL Ratio 5.4 Assessment and Plan Assessmemt and Plan Problems Medical Problems: (1) Chest pain Status: Acute (2) Headache Status: Acute (3) Hypertension Status: Acute (4) Transaminitis Status: Acute Comment Review of Relevant I have reviewed the following items cecelia (where applicable) has been applied. Labs Laboratory Tests Test 03/16/18 11:25 03/16/18 14:36 03/16/18 17:01 03/16/18 23:25 White Blood Count 6.6 x10^3/uL (4.0-11.0) Red Blood Count 4.40 x10^6/uL (3.50-5.40) Hemoglobin 13.3 g/dL (12.0-15.5) Hematocrit 39.4 % (36.0-47.0) Mean Corpuscular Volume 90 fL (79-100) Mean Corpuscular Hemoglobin 30 pg (25-35) Mean Corpuscular Hemoglobin Concent 34 g/dL (31-37) Red Cell Distribution Width 13.2 % (11.5-14.5) Platelet Count 236 x10^3/uL (140-400) Neutrophils (%) (Auto) 57 % (31-73) Lymphocytes (%) (Auto) 32 % (24-48) Monocytes (%) (Auto) 8 % (0-9) Eosinophils (%) (Auto) 1 % (0-3) Basophils (%) (Auto) 1 % (0-3) Neutrophils # (Auto) 3.8 x10^3uL (1.8-7.7) Lymphocytes # (Auto) 2.1 x10^3/uL (1.0-4.8) Monocytes # (Auto) 0.5 x10^3/uL (0.0-1.1) Eosinophils # (Auto) 0.1 x10^3/uL (0.0-0.7) Basophils # (Auto) 0.1 x10^3/uL (0.0-0.2) Sodium Level 141 mmol/L (136-145) Potassium Level 4.1 mmol/L (3.5-5.1) Chloride Level 102 mmol/L (98-107) Carbon Dioxide Level 27 mmol/L (21-32) Anion Gap 12 (6-14) Blood Urea Nitrogen 15 mg/dL (7-20) Creatinine 0.9 mg/dL (0.6-1.0) Estimated GFR (Cockcroft-Gault) 64.5 BUN/Creatinine Ratio 17 (6-20) Glucose Level 134 mg/dL (70-99) Calcium Level 9.9 mg/dL (8.5-10.1) Magnesium Level 1.8 mg/dL (1.8-2.4) Total Bilirubin 0.3 mg/dL (0.2-1.0) Aspartate Amino Transf (AST/SGOT) 48 U/L (15-37) Alanine Aminotransferase (ALT/SGPT) 98 U/L (14-59) Alkaline Phosphatase 84 U/L (46-116) Troponin I Quantitative < 0.017 ng/mL (0.000-0.055) < 0.017 ng/mL (0.000-0.055) < 0.017 ng/mL (0.000-0.055) FL-Xmc-J-Type Natriuretic Peptide 30 pg/mL (0-124) Total Protein 7.9 g/dL (6.4-8.2) Albumin 3.9 g/dL (3.4-5.0) Albumin/Globulin Ratio 1.0 (1.0-1.7) Urine Collection Type Unknown Urine Color Yellow Urine Clarity Clear Urine pH 5.5 Urine Specific [place] 1.010 Urine Protein Negative mg/dL (NEG-TRACE) Urine Glucose (UA) Negative mg/dL (NEG) Urine Ketones (Stick) Negative mg/dL (NEG) Urine Blood Negative (NEG) Urine Nitrite Negative (NEG) Urine Bilirubin Negative (NEG) Urine Urobilinogen Dipstick 0.2 mg/dL (0.2 mg/dL) Urine Leukocyte Esterase Negative (NEG) Urine RBC Occ /HPF (0-2) Urine WBC Occ /HPF (0-4) Urine Squamous Epithelial Cells Few /LPF Urine Bacteria Moderate /HPF (0-FEW) Urine Opiates Screen Neg (NEG) Urine Methadone Screen Neg (NEG) Urine Barbiturates Neg (NEG) Urine Phencyclidine Screen Neg (NEG) Urine Amphetamine/Methamphetamine Neg (NEG) Urine Benzodiazepines Screen Neg (NEG) Urine Cocaine Screen Neg (NEG) Urine Cannabinoids Screen Neg (NEG) Urine Ethyl Alcohol Neg (NEG) Test 03/17/18 04:30 White Blood Count 6.3 x10^3/uL (4.0-11.0) Red Blood Count 4.14 x10^6/uL (3.50-5.40) Hemoglobin 12.5 g/dL (12.0-15.5) Hematocrit 37.0 % (36.0-47.0) Mean Corpuscular Volume 89 fL (79-100) Mean Corpuscular Hemoglobin 30 pg (25-35) Mean Corpuscular Hemoglobin Concent 34 g/dL (31-37) Red Cell Distribution Width 13.2 % (11.5-14.5) Platelet Count 200 x10^3/uL (140-400) Neutrophils (%) (Auto) 50 % (31-73) Lymphocytes (%) (Auto) 39 % (24-48) Monocytes (%) (Auto) 8 % (0-9) Eosinophils (%) (Auto) 2 % (0-3) Basophils (%) (Auto) 0 % (0-3) Neutrophils # (Auto) 3.1 x10^3uL (1.8-7.7) Lymphocytes # (Auto) 2.5 x10^3/uL (1.0-4.8) Monocytes # (Auto) 0.5 x10^3/uL (0.0-1.1) Eosinophils # (Auto) 0.1 x10^3/uL (0.0-0.7) Basophils # (Auto) 0.0 x10^3/uL (0.0-0.2) Sodium Level 142 mmol/L (136-145) Potassium Level 4.3 mmol/L (3.5-5.1) Chloride Level 105 mmol/L (98-107) Carbon Dioxide Level 28 mmol/L (21-32) Anion Gap 9 (6-14) Blood Urea Nitrogen 15 mg/dL (7-20) Creatinine 0.9 mg/dL (0.6-1.0) Estimated GFR (Cockcroft-Gault) 64.5 Glucose Level 112 mg/dL (70-99) Calcium Level 9.0 mg/dL (8.5-10.1) Triglycerides Level 123 mg/dL (0-150) Cholesterol Level 183 mg/dL (0-200) LDL Cholesterol, Calculated 124 mg/dL (0-100) VLDL Cholesterol, Calculated 25 mg/dL (0-40) Non-HDL Cholesterol Calculated 149 mg/dL (0-129) HDL Cholesterol 34 mg/dL (40-60) Cholesterol/HDL Ratio 5.4 Laboratory Tests Test 03/16/18 11:25 03/16/18 14:36 03/16/18 17:01 03/16/18 23:25 White Blood Count 6.6 x10^3/uL (4.0-11.0) Red Blood Count 4.40 x10^6/uL (3.50-5.40) Hemoglobin 13.3 g/dL (12.0-15.5) Hematocrit 39.4 % (36.0-47.0) Mean Corpuscular Volume 90 fL (79-100) Mean Corpuscular Hemoglobin 30 pg (25-35) Mean Corpuscular Hemoglobin Concent 34 g/dL (31-37) Red Cell Distribution Width 13.2 % (11.5-14.5) Platelet Count 236 x10^3/uL (140-400) Neutrophils (%) (Auto) 57 % (31-73) Lymphocytes (%) (Auto) 32 % (24-48) Monocytes (%) (Auto) 8 % (0-9) Eosinophils (%) (Auto) 1 % (0-3) Basophils (%) (Auto) 1 % (0-3) Neutrophils # (Auto) 3.8 x10^3uL (1.8-7.7) Lymphocytes # (Auto) 2.1 x10^3/uL (1.0-4.8) Monocytes # (Auto) 0.5 x10^3/uL (0.0-1.1) Eosinophils # (Auto) 0.1 x10^3/uL (0.0-0.7) Basophils # (Auto) 0.1 x10^3/uL (0.0-0.2) Sodium Level 141 mmol/L (136-145) Potassium Level 4.1 mmol/L (3.5-5.1) Chloride Level 102 mmol/L (98-107) Carbon Dioxide Level 27 mmol/L (21-32) Anion Gap 12 (6-14) Blood Urea Nitrogen 15 mg/dL (7-20) Creatinine 0.9 mg/dL (0.6-1.0) Estimated GFR (Cockcroft-Gault) 64.5 BUN/Creatinine Ratio 17 (6-20) Glucose Level 134 mg/dL (70-99) Calcium Level 9.9 mg/dL (8.5-10.1) Magnesium Level 1.8 mg/dL (1.8-2.4) Total Bilirubin 0.3 mg/dL (0.2-1.0) Aspartate Amino Transf (AST/SGOT) 48 U/L (15-37) Alanine Aminotransferase (ALT/SGPT) 98 U/L (14-59) Alkaline Phosphatase 84 U/L (46-116) Troponin I Quantitative < 0.017 ng/mL (0.000-0.055) < 0.017 ng/mL (0.000-0.055) < 0.017 ng/mL (0.000-0.055) ME-Lzi-I-Type Natriuretic Peptide 30 pg/mL (0-124) Total Protein 7.9 g/dL (6.4-8.2) Albumin 3.9 g/dL (3.4-5.0) Albumin/Globulin Ratio 1.0 (1.0-1.7) Urine Collection Type Unknown Urine Color Yellow Urine Clarity Clear Urine pH 5.5 Urine Specific [place] 1.010 Urine Protein Negative mg/dL (NEG-TRACE) Urine Glucose (UA) Negative mg/dL (NEG) Urine Ketones (Stick) Negative mg/dL (NEG) Urine Blood Negative (NEG) Urine Nitrite Negative (NEG) Urine Bilirubin Negative (NEG) Urine Urobilinogen Dipstick 0.2 mg/dL (0.2 mg/dL) Urine Leukocyte Esterase Negative (NEG) Urine RBC Occ /HPF (0-2) Urine WBC Occ /HPF (0-4) Urine Squamous Epithelial Cells Few /LPF Urine Bacteria Moderate /HPF (0-FEW) Urine Opiates Screen Neg (NEG) Urine Methadone Screen Neg (NEG) Urine Barbiturates Neg (NEG) Urine Phencyclidine Screen Neg (NEG) Urine Amphetamine/Methamphetamine Neg (NEG) Urine Benzodiazepines Screen Neg (NEG) Urine Cocaine Screen Neg (NEG) Urine Cannabinoids Screen Neg (NEG) Urine Ethyl Alcohol Neg (NEG) Test 03/17/18 04:30 White Blood Count 6.3 x10^3/uL (4.0-11.0) Red Blood Count 4.14 x10^6/uL (3.50-5.40) Hemoglobin 12.5 g/dL (12.0-15.5) Hematocrit 37.0 % (36.0-47.0) Mean Corpuscular Volume 89 fL (79-100) Mean Corpuscular Hemoglobin 30 pg (25-35) Mean Corpuscular Hemoglobin Concent 34 g/dL (31-37) Red Cell Distribution Width 13.2 % (11.5-14.5) Platelet Count 200 x10^3/uL (140-400) Neutrophils (%) (Auto) 50 % (31-73) Lymphocytes (%) (Auto) 39 % (24-48) Monocytes (%) (Auto) 8 % (0-9) Eosinophils (%) (Auto) 2 % (0-3) Basophils (%) (Auto) 0 % (0-3) Neutrophils # (Auto) 3.1 x10^3uL (1.8-7.7) Lymphocytes # (Auto) 2.5 x10^3/uL (1.0-4.8) Monocytes # (Auto) 0.5 x10^3/uL (0.0-1.1) Eosinophils # (Auto) 0.1 x10^3/uL (0.0-0.7) Basophils # (Auto) 0.0 x10^3/uL (0.0-0.2) Sodium Level 142 mmol/L (136-145) Potassium Level 4.3 mmol/L (3.5-5.1) Chloride Level 105 mmol/L (98-107) Carbon Dioxide Level 28 mmol/L (21-32) Anion Gap 9 (6-14) Blood Urea Nitrogen 15 mg/dL (7-20) Creatinine 0.9 mg/dL (0.6-1.0) Estimated GFR (Cockcroft-Gault) 64.5 Glucose Level 112 mg/dL (70-99) Calcium Level 9.0 mg/dL (8.5-10.1) Triglycerides Level 123 mg/dL (0-150) Cholesterol Level 183 mg/dL (0-200) LDL Cholesterol, Calculated 124 mg/dL (0-100) VLDL Cholesterol, Calculated 25 mg/dL (0-40) Non-HDL Cholesterol Calculated 149 mg/dL (0-129) HDL Cholesterol 34 mg/dL (40-60) Cholesterol/HDL Ratio 5.4 Medications Current Medications Aspirin (Power Aspirin) 325 mg 1X ONCE PO Last administered on 03/16/18at 11: 45; Start 03/16/18 at 11:45; Stop 03/16/18 at 11:46; Status DC Ondansetron HCl (Zofran) 4 mg PRN Q8HRS PRN IV NAUSEA/VOMITING; Start at 14:45; Stop 03/17/18 at 14:44 Morphine Sulfate (Morphine Sulfate) 4 mg PRN Q2HR PRN IV PAIN; Start 03/16/18 at 14:45; Stop 03/17/18 at 14:44 Acetaminophen (Tylenol) 650 mg PRN Q4HRS PRN PO FEVER; Start 03/16/18 at 14:45 ; Stop 03/17/18 at 14:44 Nitroglycerin (Nitrostat) 0.4 mg PRN Q5MIN PRN SL CHEST PAIN; Start 03/16/18 at 14:45; Stop 03/17/18 at 14:44 Amlodipine Besylate (Norvasc) 10 mg DAILY PO ; Start 03/17/18 at 09:00; Status UNV Non-Formulary Medication (Lisinopril ) 1 tab DAILY PO ; Start 03/17/18 at 09:00 ; Status UNV Metformin HCl (Glucophage) 500 mg BIDWMEALS PO Last administered on 03/16/18at 17:57; Start 03/16/18 at 17:00 Aspirin (Ecotrin) 81 mg DAILYWBKFT PO ; Start 03/17/18 at 08:00 Amlodipine Besylate (Norvasc) 10 mg DAILY PO ; Start 03/17/18 at 09:00 Lisinopril (Prinivil) 40 mg DAILY PO ; Start 03/17/18 at 09:00 Labetalol HCl (Normodyne Iv Push) 10 mg PRN Q2HR PRN IVP HYPERTENSION, SEE COMMENTS; Start 03/16/18 at 16:30 Enoxaparin Sodium (Lovenox 40mg Syringe) 40 mg BID SQ Last administered on at 21:09; Start 03/16/18 at 21:00 Pantoprazole Sodium (Protonix) 40 mg DAILYAC PO ; Start 03/17/18 at 07:30 Active Scripts Active Reported Metformin Hcl 500 Mg Tablet 500 Mg PO BIDWMEALS Lisinopril 5 Mg Tablet 1 Tab PO DAILY Norvasc (Amlodipine Besylate) 10 Mg Tablet 10 Mg PO DAILY Vitals/I & O Vital Sign - Last 24 Hours 03/16/18 03/16/18 03/16/18 03/16/18 11:27 12:00 13:00 13:50 Temp 97.6 97.6 Pulse 83 66 62 62 Resp 16 B/P (MAP) 176/85 (115) 135/73 (93) 133/76 (95) 143/76 (98) Pulse Ox 97 97 100 100 O2 Delivery Room Air Room Air Room Air Room Air 03/16/18 03/16/18 03/16/18 03/16/18 14:50 15:00 15:05 19:00 Temp 97.6 97.4 97.6 97.4 Pulse 62 64 67 Resp 18 18 B/P (MAP) 133/63 (86) 143/77 (99) 145/79 (101) Pulse Ox 98 96 100 O2 Delivery Room Air Room Air Room Air 03/16/18 03/16/18 03/17/18 20:00 23:00 03:00 Temp 97.4 97.4 97.4 97.4 Pulse 61 75 Resp 18 18 B/P (MAP) 127/71 (89) 152/77 (102) Pulse Ox 98 98 O2 Delivery Room Air Room Air Room Air Intake and Output 03/16/18 03/16/18 03/17/18 15:00 23:00 07:00 Intake Total 420 ml 240 ml Balance 420 ml 240 ml COLT DELEON MD Mar 17, 2018 07:53
[2018-03-17] MEDS ORDERED: ASPIRIN ENTERIC COATED 81 MG TABLET.DR. PO SCH (08:00)
--- NOTE | 2018-03-17 08:48 | EKG ---
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
[2018-03-17] MEDS ORDERED: LISINOPRIL 20 MG TABLET PO SCH (09:00)
[2018-03-17] MEDS: ENOXAPARIN 40 MG/0.4 ML SYRINGE. SQ SCH (09:00)
[2018-03-17] MEDS ORDERED: NON FORMULARY ITEM (Lisinopril 1 TAB) PO SCH (09:00)
[2018-03-17] MEDS ORDERED: amLODIPine BESYLATE 10 MG TABLET PO SCH ×2 (09:00)
--- NOTE | 2018-03-17 10:42 | CARD ---
MR#: [id number] Date of Study: 03/17/2018 Ordering Physician: CHANDNI JOHNSON, Referring Physician: YULIANA BARRETT Tech: Yuly Norman RDCS APPROVED REPORT EXAM: Two-dimensional and M-mode echocardiogram with Doppler and color Doppler. Other Information Quality : Good INDICATION Chest Pain 2D DIMENSIONS RVDd2.6 (2.9-3.5cm)Left Atrium(2D)3.7 (1.6-4.0cm) IVSd1.0 (0.7-1.1cm)Aortic Root(2D)2.6 (2.0-3.7cm) LVDd4.3 (3.9-5.9cm)LVOT Diameter2.0 (1.8-2.4cm) PWd1.0 (0.7-1.1cm)LVDs3.2 (2.5-4.0cm) FS (%) 25.7 %SV43.4 ml LVEF(%)55.0 (>50%) Aortic Valve AoV Peak Edd.158.9cm/sAoV VTI33.8cm AO Peak GR.10.1mmHgLVOT Peak Edd.108.5cm/s LVOT VTI 25.76cmAO Mean GR.5mmHg [place] (VMAX)2.08fi8FGM (VTI)2.29cm2 Mitral Valve MV E Xyoaauoh69.5cm/sMV DECEL [id number] MV A Ytidlclq77.3cm/sMV [id number] E/A Ratio0.9MVA (PHT)2.80cm2 TDI E/Lateral E'5.8E/Medial E'5.9 Pulmonary Vein S1 Vrshobhl97.3cm/sD2 Inpuoxpt51.1cm/s LEFT VENTRICLE The left ventricle is normal size. There is normal left ventricular wall thickness. The left ventricu lar systolic function is normal. The Ejection Fraction is 55-60%. There is normal LV segmental wall m otion. Transmitral Doppler flow pattern is Grade I-abnormal relaxation pattern. RIGHT VENTRICLE The right ventricle is normal size. The right ventricular systolic function is normal. ATRIA The left atrium size is normal. The right atrium size is normal. The interatrial septum is intact wit h no evidence for an atrial septal defect or patent foramen ovale as noted on 2-D or Doppler imaging. AORTIC VALVE The aortic valve is calcified but opens well. Doppler and Color Flow revealed trace aortic regurgitat ion. There is no significant aortic valvular stenosis. MITRAL VALVE The mitral valve is normal in structure and function. There is no evidence of mitral valve prolapse. There is no mitral valve stenosis. Doppler and Color-flow revealed trace to mild mitral regurgitation . TRICUSPID VALVE The tricuspid valve is normal in structure and function. Doppler and Color Flow revealed physiologica l tricuspid regurgitation. There is no tricuspid valve stenosis. PULMONIC VALVE The pulmonic valve is not well visualized. Doppler and Color Flow revealed no pulmonic valvular regur gitation. There is no pulmonic valvular stenosis. GREAT VESSELS The aortic root is normal in size. The ascending aorta is normal in size. The IVC is normal in size a nd collapses >50% with inspiration. PERICARDIAL EFFUSION There is no evidence of significant pericardial effusion. Critical Notification Critical Value: No <Conclusion> The left ventricular systolic function is normal. The Ejection Fraction is 55-60%. There is normal LV segmental wall motion. Transmitral Doppler flow pattern is Grade I-abnormal relaxation pattern. Doppler and Color-flow revealed trace to mild mitral regurgitation. There is no evidence of significant pericardial effusion. Signed by : Ruiz Fitzgerald, Electronically Approved : 03/17/2018 10:41:12
[2018-03-17 10:52] VITALS: BP 151/91
--- NOTE | 2018-03-17 12:05 | PDOC3 ---
Discharge Summary Visit Information Date of Admission: Mar 16, 2018 Date of Discharge: Mar 17, 2018 Admitting Diagnosis: Chest Pain, HTN accelerated Final Diagnosis Problems Medical Problems: (1) Chest pain Status: Acute (2) Headache Status: Acute (3) Hypertension Status: Acute (4) Transaminitis Status: Acute Brief Hospital Course Allergies Allergies Coded Allergies Type Severity Reaction Last Updated Verified No Known Drug Allergies 05/25/16 No Vital Signs Vital Signs Date Time Temp Pulse Resp B/P (MAP) Pulse Ox O2 Delivery O2 Flow Rate FiO2 03/17/18 10:52 97.8 57 20 151/91 (111) 100 Room Air 97.8 Lab Results Laboratory Tests Test 03/16/18 11:25 03/16/18 14:36 03/16/18 17:01 03/16/18 23:25 White Blood Count 6.6 x10^3/uL (4.0-11.0) Red Blood Count 4.40 x10^6/uL (3.50-5.40) Hemoglobin 13.3 g/dL (12.0-15.5) Hematocrit 39.4 % (36.0-47.0) Mean Corpuscular Volume 90 fL (79-100) Mean Corpuscular Hemoglobin 30 pg (25-35) Mean Corpuscular Hemoglobin Concent 34 g/dL (31-37) Red Cell Distribution Width 13.2 % (11.5-14.5) Platelet Count 236 x10^3/uL (140-400) Neutrophils (%) (Auto) 57 % (31-73) Lymphocytes (%) (Auto) 32 % (24-48) Monocytes (%) (Auto) 8 % (0-9) Eosinophils (%) (Auto) 1 % (0-3) Basophils (%) (Auto) 1 % (0-3) Neutrophils # (Auto) 3.8 x10^3uL (1.8-7.7) Lymphocytes # (Auto) 2.1 x10^3/uL (1.0-4.8) Monocytes # (Auto) 0.5 x10^3/uL (0.0-1.1) Eosinophils # (Auto) 0.1 x10^3/uL (0.0-0.7) Basophils # (Auto) 0.1 x10^3/uL (0.0-0.2) Sodium Level 141 mmol/L (136-145) Potassium Level 4.1 mmol/L (3.5-5.1) Chloride Level 102 mmol/L (98-107) Carbon Dioxide Level 27 mmol/L (21-32) Anion Gap 12 (6-14) Blood Urea Nitrogen 15 mg/dL (7-20) Creatinine 0.9 mg/dL (0.6-1.0) Estimated GFR (Cockcroft-Gault) 64.5 BUN/Creatinine Ratio 17 (6-20) Glucose Level 134 mg/dL (70-99) Calcium Level 9.9 mg/dL (8.5-10.1) Magnesium Level 1.8 mg/dL (1.8-2.4) Total Bilirubin 0.3 mg/dL (0.2-1.0) Aspartate Amino Transf (AST/SGOT) 48 U/L (15-37) Alanine Aminotransferase (ALT/SGPT) 98 U/L (14-59) Alkaline Phosphatase 84 U/L (46-116) Troponin I Quantitative < 0.017 ng/mL (0.000-0.055) < 0.017 ng/mL (0.000-0.055) < 0.017 ng/mL (0.000-0.055) YE-Tjb-C-Type Natriuretic Peptide 30 pg/mL (0-124) Total Protein 7.9 g/dL (6.4-8.2) Albumin 3.9 g/dL (3.4-5.0) Albumin/Globulin Ratio 1.0 (1.0-1.7) Urine Collection Type Unknown Urine Color Yellow Urine Clarity Clear Urine pH 5.5 Urine Specific [place] 1.010 Urine Protein Negative mg/dL (NEG-TRACE) Urine Glucose (UA) Negative mg/dL (NEG) Urine Ketones (Stick) Negative mg/dL (NEG) Urine Blood Negative (NEG) Urine Nitrite Negative (NEG) Urine Bilirubin Negative (NEG) Urine Urobilinogen Dipstick 0.2 mg/dL (0.2 mg/dL) Urine Leukocyte Esterase Negative (NEG) Urine RBC Occ /HPF (0-2) Urine WBC Occ /HPF (0-4) Urine Squamous Epithelial Cells Few /LPF Urine Bacteria Moderate /HPF (0-FEW) Urine Opiates Screen Neg (NEG) Urine Methadone Screen Neg (NEG) Urine Barbiturates Neg (NEG) Urine Phencyclidine Screen Neg (NEG) Urine Amphetamine/Methamphetamine Neg (NEG) Urine Benzodiazepines Screen Neg (NEG) Urine Cocaine Screen Neg (NEG) Urine Cannabinoids Screen Neg (NEG) Urine Ethyl Alcohol Neg (NEG) Test 03/17/18 04:30 White Blood Count 6.3 x10^3/uL (4.0-11.0) Red Blood Count 4.14 x10^6/uL (3.50-5.40) Hemoglobin 12.5 g/dL (12.0-15.5) Hematocrit 37.0 % (36.0-47.0) Mean Corpuscular Volume 89 fL (79-100) Mean Corpuscular Hemoglobin 30 pg (25-35) Mean Corpuscular Hemoglobin Concent 34 g/dL (31-37) Red Cell Distribution Width 13.2 % (11.5-14.5) Platelet Count 200 x10^3/uL (140-400) Neutrophils (%) (Auto) 50 % (31-73) Lymphocytes (%) (Auto) 39 % (24-48) Monocytes (%) (Auto) 8 % (0-9) Eosinophils (%) (Auto) 2 % (0-3) Basophils (%) (Auto) 0 % (0-3) Neutrophils # (Auto) 3.1 x10^3uL (1.8-7.7) Lymphocytes # (Auto) 2.5 x10^3/uL (1.0-4.8) Monocytes # (Auto) 0.5 x10^3/uL (0.0-1.1) Eosinophils # (Auto) 0.1 x10^3/uL (0.0-0.7) Basophils # (Auto) 0.0 x10^3/uL (0.0-0.2) Sodium Level 142 mmol/L (136-145) Potassium Level 4.3 mmol/L (3.5-5.1) Chloride Level 105 mmol/L (98-107) Carbon Dioxide Level 28 mmol/L (21-32) Anion Gap 9 (6-14) Blood Urea Nitrogen 15 mg/dL (7-20) Creatinine 0.9 mg/dL (0.6-1.0) Estimated GFR (Cockcroft-Gault) 64.5 Glucose Level 112 mg/dL (70-99) Calcium Level 9.0 mg/dL (8.5-10.1) Triglycerides Level 123 mg/dL (0-150) Cholesterol Level 183 mg/dL (0-200) LDL Cholesterol, Calculated 124 mg/dL (0-100) VLDL Cholesterol, Calculated 25 mg/dL (0-40) Non-HDL Cholesterol Calculated 149 mg/dL (0-129) HDL Cholesterol 34 mg/dL (40-60) Cholesterol/HDL Ratio 5.4 Laboratory Tests Test 03/16/18 14:36 03/16/18 17:01 03/16/18 23:25 03/17/18 04:30 Urine Collection Type Unknown Urine Color Yellow Urine Clarity Clear Urine pH 5.5 Urine Specific [place] 1.010 Urine Protein Negative mg/dL (NEG-TRACE) Urine Glucose (UA) Negative mg/dL (NEG) Urine Ketones (Stick) Negative mg/dL (NEG) Urine Blood Negative (NEG) Urine Nitrite Negative (NEG) Urine Bilirubin Negative (NEG) Urine Urobilinogen Dipstick 0.2 mg/dL (0.2 mg/dL) Urine Leukocyte Esterase Negative (NEG) Urine RBC Occ /HPF (0-2) Urine WBC Occ /HPF (0-4) Urine Squamous Epithelial Cells Few /LPF Urine Bacteria Moderate /HPF (0-FEW) Urine Opiates Screen Neg (NEG) Urine Methadone Screen Neg (NEG) Urine Barbiturates Neg (NEG) Urine Phencyclidine Screen Neg (NEG) Urine Amphetamine/Methamphetamine Neg (NEG) Urine Benzodiazepines Screen Neg (NEG) Urine Cocaine Screen Neg (NEG) Urine Cannabinoids Screen Neg (NEG) Urine Ethyl Alcohol Neg (NEG) Troponin I Quantitative < 0.017 ng/mL (0.000-0.055) < 0.017 ng/mL (0.000-0.055) White Blood Count 6.3 x10^3/uL (4.0-11.0) Red Blood Count 4.14 x10^6/uL (3.50-5.40) Hemoglobin 12.5 g/dL (12.0-15.5) Hematocrit 37.0 % (36.0-47.0) Mean Corpuscular Volume 89 fL (79-100) Mean Corpuscular Hemoglobin 30 pg (25-35) Mean Corpuscular Hemoglobin Concent 34 g/dL (31-37) Red Cell Distribution Width 13.2 % (11.5-14.5) Platelet Count 200 x10^3/uL (140-400) Neutrophils (%) (Auto) 50 % (31-73) Lymphocytes (%) (Auto) 39 % (24-48) Monocytes (%) (Auto) 8 % (0-9) Eosinophils (%) (Auto) 2 % (0-3) Basophils (%) (Auto) 0 % (0-3) Neutrophils # (Auto) 3.1 x10^3uL (1.8-7.7) Lymphocytes # (Auto) 2.5 x10^3/uL (1.0-4.8) Monocytes # (Auto) 0.5 x10^3/uL (0.0-1.1) Eosinophils # (Auto) 0.1 x10^3/uL (0.0-0.7) Basophils # (Auto) 0.0 x10^3/uL (0.0-0.2) Sodium Level 142 mmol/L (136-145) Potassium Level 4.3 mmol/L (3.5-5.1) Chloride Level 105 mmol/L (98-107) Carbon Dioxide Level 28 mmol/L (21-32) Anion Gap 9 (6-14) Blood Urea Nitrogen 15 mg/dL (7-20) Creatinine 0.9 mg/dL (0.6-1.0) Estimated GFR (Cockcroft-Gault) 64.5 Glucose Level 112 mg/dL (70-99) Calcium Level 9.0 mg/dL (8.5-10.1) Triglycerides Level 123 mg/dL (0-150) Cholesterol Level 183 mg/dL (0-200) LDL Cholesterol, Calculated 124 mg/dL (0-100) VLDL Cholesterol, Calculated 25 mg/dL (0-40) Non-HDL Cholesterol Calculated 149 mg/dL (0-129) HDL Cholesterol 34 mg/dL (40-60) Cholesterol/HDL Ratio 5.4 Brief Hospital Course 57 yo female who presented with complaints of chest pain and hypertension. Has noticed blood pressure has been elevated for the last couple of weeks. PCP recently increased Norvasc and lisinopril form 5mg to 10mg each. BP continued to be elevated. Over the last week, SBP has been consistently > 160. Over the last couple of days SBP > 180 and occasionally in the 200 range. Last night, felt dizzy. Had LANE. SBP in the 190's. This morning, experienced central chest pressure in addition to the dizziness and LANE. Checked blood pressure and it was >200 so she decided to come to the ED for further evaluation and treatment. Denies any associated SOA, palpitations, diaphoresis, nausea/vomiting or PND. Reports chronic fatigued. Reports increased stress at work, otherwise no changes at home. Found with elevated BP as above and elevated transaminases. Underwent EKG - NSR Echo showing: The left ventricular systolic function is normal.The Ejection Fraction is 55-60%. There is normal LV segmental wall motion. Transmitral Doppler flow pattern is Grade I-abnormal relaxation pattern. Doppler and Color-flow revealed trace to mild mitral regurgitation. There is no evidence of significant pericardial effusion. STRESS TEST - 05/26/16 Conclusion 1. No EKG evidence of stress induced ischemia. 2. Normal myocardial perfusion at stress. Resting images not performed. 3. Normal EF at > 70% 4. Low risk study A/P: Chest pain, atypical and most probably related to accelerated HTN - EKG and echo reviewed ok Accelerated hypertension - back on home amlodipine and lisinopril Hyperlipidemia Mildly elevated LFTs - needs outpatient repeat studies, could be secondary to her elevated BP as end-organ dysfunction Ok to go home Discharge Information Condition at Discharge: Improved Follow Up: Weeks (2) Disposition/Orders: D/C to Home Scheduled Amlodipine Besylate (Norvasc) 10 Mg Tablet, 10 MG PO DAILY, (Reported) Entered as Reported by: Juan Carlos Calle on 05/26/16 1700 Last Action: Continued on 03/16/181620 by YULIANA BARRETT MD Lisinopril (Lisinopril) 5 Mg Tablet, 1 TAB PO DAILY, #30 Ref 5 (Reported) Entered as Reported by: Juan Carlos Calle on 05/26/16 1707 Last Action: Converted on 03/16/181620 by YULIANA BARRETT MD Metformin Hcl (Metformin Hcl) 500 Mg Tablet, 500 MG PO BIDWMEALS for ANTI- DIABETIC, Ref 0 (Reported) Entered as Reported by: LIVIA BECKER on 03/16/18 1600 Last Taken: 500mg PO BID on 03/16/18 Last Action: Converted on 03/16/181620 by MD PANCHO MORROW CHRISTOPHER S MD Mar 17, 2018 12:05
[2018-03-17] MEDS ORDERED: ASPI-612 PO (12:07)
[2018-03-17] MEDS ORDERED: NITR0.4T SL (12:07)
[2018-03-17] MEDS ORDERED: Pantoprazole PO (12:07)
[2018-03-17] MEDS: metFORMIN 500 MG TABLET PO SCH (13:26)
[2018-03-17 13:27] VITALS: BP 151/91
== END 2018-03-17 14:29 | disposition home or self-care (01) ==
LOC: ER 11:15 → 5 NORTH 14:35
PROVIDERS: ADMIT Family Medicine; ATTEND Family Medicine
DX: R07.89 Other chest pain (principal); R51 Headache; I10 Essential (primary) hypertension; R74.0 Nonspecific elevation of levels of transaminase and lactic acid dehydrogenase [LDH]; E78.5 Hyperlipidemia, unspecified; E11.9 Type 2 diabetes mellitus without complications; M19.90 Unspecified osteoarthritis, unspecified site; E66.9 Obesity, unspecified; F43.9 Reaction to severe stress, unspecified; F41.9 Anxiety disorder, unspecified; K76.0 Fatty (change of) liver, not elsewhere classified; K21.9 Gastro-esophageal reflux disease without esophagitis; I16.0 Hypertensive urgency; Z82.3 Family history of stroke; Z90.710 Acquired absence of both cervix and uterus; Z79.82 Long term (current) use of aspirin; Z82.49 Family history of ischemic heart disease and other diseases of the circulatory system
CPT/HCPCS: 36415; 71045; 76705; 80048; 80053; 80061; 80307; 81001; 83735; 83880; 84484; 85025; 87086; 93005; 93306; 96372; 99285; G0378; J1650; G0379

== ENCOUNTER → 2018-06-10 | Outpatient (CLI) | payer BC ==
[~2018-06-10] MED LIST changes: +ASPI-612 PO; +METF500T16 PO; +NITR0.4T SL; +Pantoprazole PO
--- NOTE | 2018-06-10 10:23 | RAD ---
CT CHEST WO CONTRAST Indication: F/U LUNG NODULE PREV SENT Exposure: One or more of the following individualized dose reduction techniques were utilized for this examination: 1. Automated exposure control 2. Adjustment of the mA and/or kV according to patient size 3. Use of iterative reconstruction technique. Comparison: June 25, 2017 Contrast: None Mild calcifications of the thoracic aorta. Vascular exam limited without contrast. No significant lymph node enlargement. Small mediastinal lymph nodes are again identified without pathologic lymph node enlargement. Minimal coronary artery calcification. Fullness or enlargement of the right thyroid is again identified. No significant pleural effusion. No abnormal esophageal distention. Small hiatal hernia. The right lower lobe pulmonary nodule demonstrates a similar size and morphology as compared with prior. Small nodule in the lateral right lung base, series 3, image 208, measures 3 mm, unchanged. Right middle lobe nodule, series 3 image 161 is unchanged in size and appearance. Another right middle lobe nodule, series 3, image 165 is unchanged in size and appearance. Some mild hazy stranding within the left lung at the lingula is stable. Trachea and central airways appear patent. Limited scans through the upper abdomen demonstrate no obvious acute findings. Limited without contrast. Right convexity thoracic scoliosis redemonstrated mild degenerative spondylosis. IMPRESSION: 1. Multiple pulmonary nodules, without significant change or appearance since prior study. 2. Right thyroid gland enlargement is again identified. Electronically signed by: Corey Valdes MD (06/10/2018 10:19 AM) [id number]
== END | disposition home or self-care (01) ==
LOC: CT 09:47
PROVIDERS: ATTEND Internal Medicine Pulmonary Disease
DX: E04.9 Nontoxic goiter, unspecified (principal); R91.8 Other nonspecific abnormal finding of lung field; I70.0 Atherosclerosis of aorta; K44.9 Diaphragmatic hernia without obstruction or gangrene; M47.814 Spondylosis without myelopathy or radiculopathy, thoracic region; M41.84 Other forms of scoliosis, thoracic region
CPT/HCPCS: 71250

== ENCOUNTER → 2019-02-09 | Outpatient (CLI) | payer BC ==
[~2019-02-09] MED LIST changes: -NITR0.4T SL; +NITR0.4T24 SL
--- NOTE | 2019-02-09 10:59 | KCIC ---
EXAM: 3 views left knee DATE: 02/09/2019 12:00 AM INDICATION: Left knee pain COMPARISON: No Prior FINDINGS: No evidence of acute fracture or dislocation. No knee joint effusion. Mild medial compartment joint space narrowing with small medial and patellofemoral compartment osteophytes. Vascular calcifications are seen. IMPRESSION: 1. No evidence of acute fracture or dislocation. 2. Mild medial compartment joint space narrowing with small medial and patellofemoral compartment osteophytes. Electronically signed by: Sina Martin MD (02/09/2019 10:56 AM) [facility]
== END | disposition home or self-care (01) ==
LOC: KCIC 09:01
PROVIDERS: ATTEND Nurse Practitioner Family
DX: M25.762 Osteophyte, left knee (principal)
CPT/HCPCS: 73562

== ENCOUNTER → 2021-06-10 | Outpatient (CLI) | payer BC, OTHER ==
[~2021-06-10] MED LIST changes: -ASPI-612 PO; +ASPI-886 PO; -LISI-338 PO; +LISI5TAB15 PO
--- NOTE | 2021-06-10 15:42 | KCIC ---
Bilateral digital screening mammograms with 3-D tomosynthesis: Reason for examination: Routine screening. No previous exams for comparison. New baseline. Bilateral mammograms in CC and oblique projections were obtained with 2-D imaging and 3-D tomosynthes is imaging on a Siemens Inspiration unit and reviewed on the workstation. Interpretation was made wit h the benefit of CAD. The skin and nipples show no abnormalities. No abnormal axillary lymph nodes are seen. The breast par enchyma shows scattered fatty and fibroglandular density. (Breast density: Category B.) There are no dominant masses, suspicious calcifications or architectural distortion. A few punctate calcifications are seen. Impression: No evidence of malignancy. Recommend routine screening. BI-RAD Category 2: Benign. "Our facility is accredited by the [employer] Mammography Program." This patient's information has been entered into a reminder system for the patient to be notified wit h the results of her examination and a target date for the next mammogram. Electronically signed by: Imani Balderrama MD (06/10/2021 3:40 PM) [email or web address]
== END ==
LOC: KCIC MAMMO 14:00
PROVIDERS: ATTEND Nurse Practitioner
DX: Z12.31 Encounter for screening mammogram for malignant neoplasm of breast (principal)
CPT/HCPCS: 77063; 77067